=== PATIENT | female | born 1945 | race Caucasian/White ===

== ENCOUNTER 2017-03-11 12:31 | Emergency (ER) | payer OTHER ==
[~2017-03-11] VITALS: Ht 172.7 cm; Wt 120.0 kg
[~2017-03-11 12:31] MED LIST: ADVA250A INH; ALBU1AER INH; DICL-86 PO; FLEX10TA PO; GABA250S PO; METF-324 PO; MONT10TA2 OR; PRIL20TA2 PO; TRAM50 PO; ULTR50TA PO; VASO10TA8 PO; VENTAER INH
[2017-03-11 12:49] VITALS: BP 174/112; PULSE 106; RESP 20; TEMP 98.3; O2SAT 100
[2017-03-11] MEDS ORDERED: NEUR300C PO (12:55)
--- NOTE | 2017-03-11 13:10 | PD ---
HPI Chief Complaint: Fall Time Seen by Provider: 12:49 Travel History International Travel<30 days: No Contact w/Intl Traveler<30days: No Traveled to known affect area: No History of Present Illness HPI 71yo F PMH of chronic back pain presents to the ED with multiple complaints after a fall today. Pt was walking on 2 canes and slipped on wet kitchen floor that was very narrow and fell on her bilateral knees first and then her wrists and then hit her neck against the pantry and the left shoulder against the other side of the wall. Denies any LOC. Denies any chest pain, sob, n/v. Pt with lower abdominal pain and bilateral hip pain s/p fall as well. No focal weakness or numbness. Not on any anticoagulation. 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 CHARLTON) Past Surgical History Abdominal Surgery: Yes (GALLBLADER) AICD: No Cholecystectomy: Yes Gynecologic Surgery: Yes () Oral Surgery: Yes ([id number]) Pacemaker: No Social History Alcohol Use: No Tobacco Use: No Substance Use: No Allergies-Medications (Allergen,Severity, Reaction): Coded Allergies: Sulfa (Sulfonamide Antibiotics) (Unverified Allergy, Severe, 02/07/17) codeine (Unverified Allergy, Severe, 02/07/17) iodine (Unverified Allergy, Severe, 02/07/17) levofloxacin (Unverified Allergy, Severe, RASH, 02/07/17) penicillin G (Unverified Allergy, Severe, 02/07/17) potassium iodide (Unverified Allergy, Severe, 02/07/17) povidone-iodine (Unverified Allergy, Severe, 02/07/17) sodium iodide (Unverified Allergy, Severe, 02/07/17) sodium iodide (Unverified Allergy, Severe, 02/07/17) Reported Meds & Prescriptions Reported Meds & Active Scripts Active Flexeril (Cyclobenzaprine HCl) 10 Mg Tab 10 Mg PO BID 7 Days Ultram (Tramadol HCl) 50 Mg Tab 50 Mg PO Q6-8HPRN Reported Neurontin (Gabapentin) 300 Mg Cap 300 Mg PO TID Singulair (Montelukast Sodium) 10 Mg Tab 10 Mg OR DAILY Proair Hfa (Albuterol Sulfate) 8.5 Gm Aero 2 Puff INH Q6 * SHAKE WELL BEFORE USE * Metformin ER 24 HR (Metformin HCl) 1,000 Mg Tab 1,000 Mg PO BID Advair Diskus 250/50 (Salmeterol Xinafoate/Fluticasone) 250 Mcg/50 Mcg Inhp 1 Puff INH BID Ventolin Hfa (Albuterol Sulfate) 18 Gm Aero 2 Puff INH Q4HPRN * SHAKE WELL BEFORE USE * Voltaren (Diclofenac Sodium) 75 Mg Tabec 75 Mg PO BID Neurontin (Gabapentin) 250 Mg/5 Ml Natali 300 Mg PO TID Ultram (Tramadol HCl) 50 Mg Tab 50 Mg PO BIDAC FOR PAIN Vasotec (Enalapril Maleate) 10 Mg Tab 10 Mg PO DAILY Prilosec Otc (Omeprazole Magnesium) 20 Mg Tab 1 Tab PO DAILY Review of Systems Except as stated in HPI: all other systems reviewed are Neg Physical Exam Narrative GENERAL: 71yo F in mild distress. SKIN: Focused skin assessment warm/dry. HEAD: Atraumatic. Normocephalic. EYES: Pupils equal and round at 3mm bilaterally. EOMI. No scleral icterus. No injection or drainage. ENT: No nasal bleeding or discharge. Mucous membranes pink and moist. NECK: In cervical spine collar. CARDIOVASCULAR: Regular rate and rhythm. No murmur appreciated. RESPIRATORY: No accessory muscle use. Clear to auscultation. Breath sounds equal bilaterally. GASTROINTESTINAL: Abdomen soft, _TTP LLQ, RLQ. No rebound tenderness or guarding. BACK: No step off. No midline ttp. MUSCULOSKELETAL: Bilateral knees: Ecchymoses. +TTP. Distal pulses intact. Sensation intact. Bilateral wrist: +TTP, mild edema in right distal radius. +TTP left proximal thumb. Distal pulses intact. Sensation intact. FROM in all digits. Left shoulder: Small abrasions. Good ROM in left shoulder. +TTP proximal humerus. Sensation intact. Distal pulses intact. NEUROLOGICAL: Awake and alert. No obvious cranial nerve deficits. Motor grossly within normal limits. Normal speech. PSYCHIATRIC: Appropriate mood and affect; insight and judgment normal. Data Data Last Documented VS Vital Signs Date Time Temp Pulse Resp B/P (MAP) Pulse Ox O2 Delivery O2 Flow Rate FiO2 03/11/17 12:53 106 16 100 Room Air 03/11/17 12:49 98.3 174/112 (132) Orders Orders Complete Blood Count With Diff (03/11/17 12:59) Comprehensive Metabolic Panel (03/11/17 12:59) Wrist, Limited (Ap&Lat) (03/11/17 ) Wrist, Limited (Ap&Lat) (03/11/17 ) Hand, Limited (2vws) (03/11/17 ) Shoulder, Limited(2vws) (03/11/17 ) Ct Brain W/O Iv Contrast(Rout) (03/11/17 ) Ct Cerv Spine W/O Contrast (03/11/17 ) Prothrombin Time / Inr (Pt) (03/11/17 12:59) Act Partial Throm Time (Ptt) (03/11/17 12:59) Ct Abd/Pel W/O Iv Contrast (03/11/17 ) Knee, Ltd (1 Or 2vws) (03/11/17 ) Knee, Ltd (1 Or 2vws) (03/11/17 ) Diazepam (Valium) (03/11/17 15:30) Ketorolac Inj (Toradol Inj) (03/11/17 15:30) Splint Or Brace Apply/Monitor (03/11/17 15:35) Fiberglass Splint Forearm Adul (03/11/17 ) Sling Cradle Arm (03/11/17 ) Labs Laboratory Tests Test 03/11/17 13:10 White Blood Count 9.8 TH/MM3 Red Blood Count 4.67 MIL/MM3 Hemoglobin 14.3 GM/DL Hematocrit 41.5 % Mean Corpuscular Volume 89.0 FL Mean Corpuscular Hemoglobin 30.6 PG Mean Corpuscular Hemoglobin Concent 34.4 % Red Cell Distribution Width 13.9 % Platelet Count 185 TH/MM3 Mean Platelet Volume 9.7 FL Neutrophils (%) (Auto) 75.7 % Lymphocytes (%) (Auto) 12.9 % Monocytes (%) (Auto) 9.7 % Eosinophils (%) (Auto) 1.1 % Basophils (%) (Auto) 0.6 % Neutrophils # (Auto) 7.4 TH/MM3 Lymphocytes # (Auto) 1.3 TH/MM3 Monocytes # (Auto) 1.0 TH/MM3 Eosinophils # (Auto) 0.1 TH/MM3 Basophils # (Auto) 0.1 TH/MM3 CBC Comment DIFF FINAL Differential Comment Prothrombin Time 10.7 SEC Prothromb Time International Ratio 1.0 RATIO Activated Partial Thromboplast Time 27.1 SEC Blood Urea Nitrogen 9 MG/DL Creatinine 0.58 MG/DL Random Glucose 143 MG/DL Total Protein 6.5 GM/DL Albumin 3.5 GM/DL Calcium Level 10.0 MG/DL Alkaline Phosphatase 140 U/L Aspartate Amino Transf (AST/SGOT) 20 U/L Alanine Aminotransferase (ALT/SGPT) 30 U/L Total Bilirubin 0.9 MG/DL Sodium Level 138 MEQ/L Potassium Level 3.8 MEQ/L Chloride Level 105 MEQ/L Carbon Dioxide Level 24.1 MEQ/L Anion Gap 9 MEQ/L Estimat Glomerular Filtration Rate 103 ML/MIN [facility] Medical Decision Making Medical Screen Exam Complete: Yes Emergency Medical Condition: Yes Differential Diagnosis Fracture vs. contusion vs. musculoskeletal pain Narrative Course 71yo F with multiple complaints s/p mechanical fall today. Labs reviewed, no leukocytosis. Alk phos mildly elevated at 140. CTa/p showed no evidence for significant acute traumatic injury in abdomen or pelvis. Xray left hand showed no acute fracture. CT brain negative. CT cspine showed no acute fracture or dislocation. Xray of bilateral knee showed no acute fracture. Xray left shoulder showed no acute fracture. Xray right wrist showed small osseous fragment just inferior to the triquetrum. Probable triquetral avulsion fracture. Pt placed in a volar splint and instructed to follow up with hand surgery Dr. Anderson as an outpatient. Xray left wrist negative. Pt given valium and toradol for pain. Pt reevaluated at bedside and feels better. Pt's family members are here and able to take her home. informatics manager called and she gave them resources for assisted living facilities. Diagnosis Primary Impression: Triquetral fracture Qualified Codes: S62.114A - Nondisplaced fracture of triquetrum [cuneiform] bone, right wrist, initial encounter for closed fracture Referrals: Francis Evans MD 2 days Probable triquetral avulsion fracture. Patient Instructions: General Instructions Departure Forms: Tests/Procedures Additional Instructions: Please follow up with hand surgeon Dr. Anderson [phone] in 2-3 days. You can take the hydrocodone that you have as needed for pain. Return to the ED if symptoms worsen. Med/Other Pt SpecificInfo: No Change to Meds Disposition: 01 DISCHARGE HOME Condition: Stable Maria E De Los Santos DO Mar 11, 2017 13:10
[2017-03-11 13:58] LABS: AUTOMATED NEUTROPHIL # 7.4 TH/MM3 (1.8-7.7); BASOPHIL # 0.1 TH/MM3 (0-0.2); BASOPHIL % 0.6 % (0.0-2.0); EOSINOPHIL # 0.1 TH/MM3 (0-0.4); EOSINOPHIL % 1.1 % (0.0-4.0); HEMATOCRIT 41.5 % (35.0-46.0); HEMO FLAGS DIFF FINAL; LYMPH % 12.9 % (9.0-44.0); LYMPHOCYTE # 1.3 TH/MM3 (1.0-4.8); MEAN CORPUSCULAR HEMOGLOBIN 30.6 PG (27.0-34.0); MEAN CORPUSCULAR HGB CONC 34.4 % (32.0-36.0); MONO % 9.7 % (0.0-8.0); NEUT % 75.7 % (16.0-70.0); PLATELET COUNT 185 TH/MM3 (150-450); RED BLOOD COUNT 4.67 MIL/MM3 (4.00-5.30); RED CELL DISTRIBUTION WIDTH 13.9 % (11.6-17.2); WHITE BLOOD COUNT 9.8 TH/MM3 (4.0-11.0)
[2017-03-11 14:09] LABS: APTT (PATIENT) 27.1 SEC (24.3-30.1); PROTHROMBIN TIME - PATIENT 10.7 SEC (9.8-11.6)
[2017-03-11 14:13] LABS: ANION GAP 9 MEQ/L (5-15); BICARBONATE 24.1 MEQ/L (21.0-32.0); BLOOD UREA NITROGEN 9 MG/DL (7-18); CHLORIDE 105 MEQ/L (98-107); GLOMERULAR FILTRATION RATE 103 ML/MIN (>89); POTASSIUM 3.8 MEQ/L (3.5-5.1); SODIUM (NA) 138 MEQ/L (136-145)
[2017-03-11 14:15] LABS: ALT (GPT) 30 U/L (10-53); AST (GOT) 20 U/L (15-37)
[2017-03-11 14:17] LABS: ALKALINE PHOSPHATASE 140 U/L (45-117); TOTAL BILIRUBIN ADULT 0.9 MG/DL (0.2-1.0)
--- NOTE | 2017-03-11 14:51 | RADRPT ---
EXAM DATE/TIME: 03/11/2017 14:29 [facility] COMPARISON: No previous studies available for comparison. INDICATIONS : Trauma; fall. RADIATION DOSE: 56.35 CTDIvol (mGy) ; Patient motion MEDICAL HISTORY : Cardiovascular disease. SURGICAL HISTORY : None. ENCOUNTER: Initial ACUITY: 1 day PAIN SCALE: 5/10 LOCATION: cranial TECHNIQUE: Multiple contiguous axial images were obtained of the head. Using automated exposure control and adj ustment of the mA and/or kV according to patient size, radiation dose was kept as low as reasonably a chievable to obtain optimal diagnostic quality images. DICOM format image data is available electro nically for review and comparison. FINDINGS: CEREBRUM: The ventricles are normal for age. No evidence of midline shift, mass lesion, hemorrhage or acute in farction. No extra-axial fluid collections are seen. POSTERIOR FOSSA: The cerebellum and brainstem are intact. The 4th ventricle is midline. The cerebellopontine angle i s unremarkable. EXTRACRANIAL: The visualized portion of the orbits is intact. SKULL: The calvaria is intact. No evidence of skull fracture. CONCLUSION: 1. No acute intracranial abnormality. Luis M Santos MD on March 11, 2017 at 14:49 Board Certified Radiologist. This report was verified electronically.
--- NOTE | 2017-03-11 15:01 | RADRPT ---
EXAM DATE/TIME: 03/11/2017 14:35 [facility] COMPARISON: No previous studies available for comparison. INDICATIONS : Trauma; fall. ORAL CONTRAST: No oral contrast ingested. RADIATION DOSE: 41.39 CTDIvol (mGy) ; Patient body habitus MEDICAL HISTORY : Cardiovascular disease. SURGICAL HISTORY : Cholecystectomy. ENCOUNTER: Initial ACUITY: 1 day PAIN SCALE: 5/10 LOCATION: Bilateral abdomen. TECHNIQUE: Volumetric scanning of the abdomen and pelvis was performed. Using automated exposure control and ad justment of the mA and/or kV according to patient size, radiation dose was kept as low as reasonably achievable to obtain optimal diagnostic quality images. DICOM format image data is available electro nically for review and comparison. FINDINGS: LOWER LUNGS: The visualized lower lungs are clear. LIVER: Homogeneous density without lesion. There is no dilation of the biliary tree. Gallbladder is surgica lly absent. SPLEEN: Normal size without lesion. PANCREAS: Within normal limits. KIDNEYS: Normal in size and shape. There is no mass, stone, or hydronephrosis. ADRENAL GLANDS: Within normal limits. VASCULAR: There is no aortic aneurysm. BOWEL/MESENTERY: Mild to moderate sigmoid diverticulosis without significant inflammatory changes. Bowel otherwise tiffany ears grossly unremarkable without evidence for obstruction. No free air or pneumatosis. No significan t free fluid. No drainable fluid collection. ABDOMINAL WALL: Within normal limits. RETROPERITONEUM: Subcentimeter retroperitoneal lymph nodes do not meet CT size criteria. BLADDER: Bladder is mildly distended but otherwise unremarkable by CT. REPRODUCTIVE: Within normal limits. INGUINAL: There is no lymphadenopathy or hernia. MUSCULOSKELETAL: Degenerative spondylosis of the lower lumbar spine with postsurgical features of transpedicular screw and posterior lisa fixation at L3-4 with laminectomy at L4-5. Hardware appears intact. Degenerative c hanges about the hips bilaterally. No significant acute bony fracture in the visualized osseous struc tures. CONCLUSION: 1. No evidence for significant acute traumatic injury in the abdomen or pelvis. No free fluid. 2. Ancillary findings include sigmoid diverticulosis, degenerative spondylosis of the lumbar spine wi th postsurgical features, status post cholecystectomy. Luis M Santos MD on March 11, 2017 at 14:55 Board Certified Radiologist. This report was verified electronically.
--- NOTE | 2017-03-11 15:02 | RADRPT ---
EXAM DATE/TIME: 03/11/2017 14:17 [facility] COMPARISON: No previous studies available for comparison. INDICATIONS : Pain post fall. MEDICAL HISTORY : None. SURGICAL HISTORY : None. ENCOUNTER: Initial ACUITY: 1 day PAIN SCORE: 5/10 LOCATION: Left Shoulder. FINDINGS: Two view examination of the left shoulder demonstrates no evidence of fracture or dislocation. The g lenohumeral and acromioclavicular joints are maintained. Degenerative changes about the a.c. joint. B keisha mineralization is normal. CONCLUSION: 1. No acute fracture or dislocation. Luis M Santos MD on March 11, 2017 at 15:00 Board Certified Radiologist. This report was verified electronically.
--- NOTE | 2017-03-11 15:06 | RADRPT ---
EXAM DATE/TIME: 03/11/2017 14:09 [facility] COMPARISON: No previous studies available for comparison. INDICATIONS : Pain post fall. MEDICAL HISTORY : None. SURGICAL HISTORY : None. ENCOUNTER: Initial ACUITY: 1 day PAIN SCORE: 10/10 LOCATION: Right Knee FINDINGS: Osseous structures are intact without evidence for acute bony fracture. Prominent degenerative osteoa rthritis of the medial compartment. Mild degenerative loss arthritis of the lateral and patellofemora l compartments. No significant joint effusion. Soft tissues are grossly unremarkable. CONCLUSION: 1. No acute fracture or dislocation. 2. Prominent degenerative loss arthritis of the medial compartment. Luis M Santos MD on March 11, 2017 at 15:04 Board Certified Radiologist. This report was verified electronically.
--- NOTE | 2017-03-11 15:08 | RADRPT ---
EXAM DATE/TIME: 03/11/2017 14:09 [facility] COMPARISON: No previous studies available for comparison. INDICATIONS : Pain post fall. MEDICAL HISTORY : None. SURGICAL HISTORY : None. ENCOUNTER: Initial ACUITY: 1 day PAIN SCORE: 7/10 LOCATION: Left Knee. FINDINGS: Osseous structures are intact without evidence for acute bony fracture or focal bony destruction. Pro minent osteoarthritis of the medial and patellofemoral compartments. Mild osteoarthritis of the later al compartment. No significant joint effusion. Soft tissues are grossly unremarkable. CONCLUSION: 1. No acute fracture or dislocation. 2. Prominent degenerative osteoarthritis of the medial and patellofemoral compartments. Luis M Santos MD on March 11, 2017 at 15:05 Board Certified Radiologist. This report was verified electronically.
--- NOTE | 2017-03-11 15:09 | RADRPT ---
EXAM DATE/TIME: 03/11/2017 14:04 [facility] COMPARISON: No previous studies available for comparison. INDICATIONS : Pain post fall. MEDICAL HISTORY : None. SURGICAL HISTORY : None. ENCOUNTER: Initial ACUITY: 1 day PAIN SCORE: 6/10 LOCATION: Left Wrist. FINDINGS: Osseous structures are intact without evidence for acute bony fracture. Degenerative osteoarthritis i nvolving the first carpometacarpal joint. Carpal bones appear intact. Soft tissues are unremarkable. CONCLUSION: 1. No acute fracture or dislocation. Luis M Santos MD on March 11, 2017 at 15:06 Board Certified Radiologist. This report was verified electronically.
--- NOTE | 2017-03-11 15:12 | RADRPT ---
EXAM DATE/TIME: 03/11/2017 14:04 [facility] COMPARISON: No previous studies available for comparison. INDICATIONS : Pain post fall. MEDICAL HISTORY : None. SURGICAL HISTORY : None. ENCOUNTER: Initial ACUITY: 1 day PAIN SCORE: 5/10 LOCATION: Right Wrist. FINDINGS: Small osseous fragment just inferior to the triquetrum. Remaining osseous structures are intact. Dege nerative changes of the carpal metacarpal joints most prominently in the first carpal metacarpal join t. Mild soft tissue prominence overlying the ulnar aspect of the wrist. CONCLUSION: 1. Probable triquetral avulsion fracture, as above. Luis M Santos MD on March 11, 2017 at 15:07 Board Certified Radiologist. This report was verified electronically.
--- NOTE | 2017-03-11 15:15 | RADRPT ---
EXAM DATE/TIME: 03/11/2017 14:03 [facility] COMPARISON: No previous studies available for comparison. INDICATIONS : Pain post fall. MEDICAL HISTORY : None. SURGICAL HISTORY : None. ENCOUNTER: Initial ACUITY: 1 day PAIN SCORE: 6/10 LOCATION: Left Hand. FINDINGS: Osseous structures appear intact without evidence for acute bony fracture. Degenerative changes of th e first carpal metacarpal joint. Carpal bones appear grossly intact. No significant soft tissue abnor mality. CONCLUSION: 1. No acute fracture or dislocation. Luis M Santos MD on March 11, 2017 at 15:12 Board Certified Radiologist. This report was verified electronically.
[2017-03-11] MEDS ORDERED: DIAZEPAM 5 MG TAB PO ONE (15:30)
[2017-03-11] MEDS ORDERED: KETOROLAC TROMETHAMINE 30 MG/ML (IVP) VIAL IV PUSH ONE (15:30)
--- NOTE | 2017-03-11 15:40 | RADRPT ---
EXAM DATE/TIME: 03/11/2017 14:29 [facility] COMPARISON: No previous studies available for comparison. INDICATIONS : Trauma; fall. RADIATION DOSE: 48.73 CTDIvol (mGy) ; Patient body habitus MEDICAL HISTORY : Cardiovascular disease. SURGICAL HISTORY : None. ENCOUNTER: Initial ACUITY: 1 day PAIN SCALE: 5/10 LOCATION: Bilateral neck TECHNIQUE: Volumetric scanning of the cervical spine was performed. Multiplanar reconstructions in the sagittal, coronal and oblique axial planes were performed. Using automated exposure control and adjustment o f the mA and/or kV according to patient size, radiation dose was kept as low as reasonably achievable to obtain optimal diagnostic quality images. DICOM format image data is available electronically f or review and comparison. FINDINGS: FINDINGS: Vertebral body heights are maintained. Osseous structures are intact without evidence for acute bony fracture. Dens is intact. Sagittal alignment is maintained. There is a normal C1-2 relationship. Face ts are normally aligned. There is no significant prevertebral soft tissue hematoma. Advanced multilev el degenerative spondylosis of the lower lumbar spine most notably from C4-7 with disc space narrowin g and osteophyte formation. Multilevel facet arthropathy. No significant cervical adenopathy or gross mass. Visualized lung apices are clear without pneumothorax. CONCLUSION: 1. No acute fracture or dislocation. 2. Advanced degenerative spondylosis of the lower lumbar spine. Luis M Santos MD on March 11, 2017 at 15:36 Board Certified Radiologist. This report was verified electronically.
== END 2017-03-11 17:59 | disposition home or self-care (01) ==
LOC: NEPE 12:31
DX: S62.114A Nondisplaced fracture of triquetrum [cuneiform] bone, right wrist, initial encounter for closed fracture (principal); M25.551 Pain in right hip; M25.552 Pain in left hip; R10.30 Lower abdominal pain, unspecified; M25.532 Pain in left wrist; M25.561 Pain in right knee; M25.562 Pain in left knee; J45.909 Unspecified asthma, uncomplicated; E11.9 Type 2 diabetes mellitus without complications; W01.0XXA Fall on same level from slipping, tripping and stumbling without subsequent striking against object, initial encounter; Y92.000 Kitchen of unspecified non-institutional (private) residence as the place of occurrence of the external cause; Y99.8 Other external cause status
CPT/HCPCS: 70450; 72125; 73030; 73100; 73120; 73560; 74176; 80053; 85025; 85610; 85730; 96374; 99285; J1885

== ENCOUNTER 2018-04-11 13:39 | Inpatient (IN) ==
--- NOTE | 2018-04-11 14:04 | ED ---
HPI General Chief Complaint: Chest Pain Stated Complaint: Chest Pain Time Seen by Provider: 04/11/18 13:56 Source: patient and EMS Mode of arrival: EMS Limitations: no limitations History of Present Illness HPI narrative: Patient is a 72-year-old female presenting to the emerge department for evaluation of chest pain. Patient states started 4 days ago getting progressively worse since that time. She reports that 2 nights ago it woke her out of her sleep. Pain is associated with shortness of breath which is increased from her baseline. Patient has asthma and has been out of her inhaler. She states that the chest pain is midsternal, radiates to her neck, left arm, and through to her back. Patient reports that she felt nauseated yesterday, she has a mild headache mild dizziness as well. Patient reports a history of type 2 diabetes, asthma, osteoarthritis. She had a stress test and heart cath over 10 years ago. Symptom onset was gradual, symptoms are moderate nature. Patient presents with EMS from an urgent care center where she presented to have the CP assessed. MD complaint: Reports chest pain STEMI Alert: No Onset (ago): day(s) (4) Duration: progressively worsening Onset: during rest and during exertion Pain location: Reports substernal and left chest Severity: moderate Severity scale (1-10): 6 Quality: Reports tightness, heaviness and sharp Pain radiation: Reports LUE, back and neck Relieving factors: nothing Associated symptoms: Reports nausea, dyspnea and cough Treatments prior to arrival chest pain: Reports aspirin (324mg given by EMS) and nitroglycerin (1 SL given by EMS, pain improved slightly after this was administered.) Related Data On Oral Contraceptives: No Home Medications Medication Instructions Recorded Confirmed amlodipine 2.5 mg PO DAILY 04/11/18 04/11/18 gabapentin 600 mg PO QID 04/11/18 04/11/18 glipizide 10 mg PO BID 04/11/18 04/11/18 hydrocodone-acetaminophen 1 tab PO Q6H PRN 04/11/18 04/11/18 losartan 100 mg PO DAILY 04/11/18 04/11/18 montelukast [Singulair] 10 mg PO QPM 04/11/18 04/11/18 Allergies Allergy/AdvReac Type Severity Reaction Status Date / Time codeine Allergy Severe unknown Verified 04/11/18 16:12 iodine Allergy Severe unknown Verified 04/11/18 16:12 levofloxacin Allergy Severe RASH Verified 04/11/18 16:12 penicillin G Allergy Severe unknown Verified 04/11/18 16:12 potassium iodide Allergy Severe unknown Verified 04/11/18 16:12 povidone-iodine Allergy Severe unknown Verified 04/11/18 16:12 sodium iodide Allergy Severe unknown Verified 04/11/18 16:12 sodium iodide Allergy Severe unknown Verified 04/11/18 16:12 Sulfa (Sulfonamide Allergy Severe unknown Verified 04/11/18 16:12 Antibiotics) Review of Systems ROS: all other systems reviewed are negative PMFSH History History 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 Medical History Medical History Diabetes (Acute) Esophageal dilatation (Acute) HTN (hypertension) (Acute) Osteoarthritis (Acute) Rheumatoid arteritis (Acute) Urinary incontinence (Acute) Surgical History Surgical History H/O dilation and curettage (Acute) H/O knee surgery (Acute) History of appendectomy (Acute) History of delivery (Acute) History of cholecystectomy (Acute) Previous back surgery (Acute) Social History Social History Substance History: No History of Abuse Second Hand Smoke Exposure: Yes Smoking Status: Never smoker How Often Do You Have a Drink Containing Alcohol: Never Recent Travel in [facility] within the Last 8 Weeks: No Recent Out of Country Travel within the Last 8 Weeks: No Exam Narrative Exam Narrative: GENERAL: Overweight, well-developed, alert elderly female. Presenting in no acute distress. SKIN: Focused skin assessment warm/dry. HEAD: Atraumatic. Normocephalic. EYES: Pupils equal and round. No scleral icterus. No injection or drainage. ENT: No nasal bleeding or discharge. Mucous membranes pink and moist. NECK: Trachea midline. No JVD. CARDIOVASCULAR: Tachycardic. No murmur appreciated. RESPIRATORY: No accessory muscle use. Clear to auscultation. Breath sounds equal bilaterally. GASTROINTESTINAL: Abdomen soft, non-tender, nondistended. Hepatic and splenic margins not palpable. MUSCULOSKELETAL: No obvious deformities. No clubbing. No cyanosis. No edema. NEUROLOGICAL: Awake and alert. No obvious cranial nerve deficits. Motor grossly within normal limits. Normal speech. PSYCHIATRIC: Appropriate mood and affect; insight and judgment normal. Course Initial Documented Vital Signs Pulse Rate 128 H 04/11/18 13:44 Respiratory Rate 17 04/11/18 13:44 Blood Pressure 184/85 H 04/11/18 13:44 Pulse Oximetry 97 04/11/18 13:44 Last Documented Vital Signs Pulse Rate 82 04/11/18 15:36 Respiratory Rate 16 04/11/18 15:36 Blood Pressure 131/95 H 04/11/18 15:36 Pulse Oximetry 98 04/11/18 15:36 Clinical Decision Support HEART Score Questions History: Highly suspicious EKG: Non-specific repolarization disturbance Age: 65 years+ Risk Factors: 1-2 Risk Factors Initial Troponin: Normal Limit Heart Score HEART Score: 6 Medical Decision Making MDM Narrative Medical decision making narrative: Patient is a 72-year-old female presenting with 4 days of progressively worsening chest pain. Patient is tachycardic on arrival, she is mildly hypertensive. Labs and imaging ordered and pending. Patient will be given nitroglycerin paste to her anterior chest wall. She already received aspirin in route. Labs reviewed, no acute findings identified. Chest x-ray shows no acute disease. Patient has been resting comfortably, her blood pressure trended down with the administration of Nitropaste to her anterior chest wall, she is currently pain-free. CT pulmonary angiogram was performed to rule out pulmonary embolism due to patient' s tachycardia on arrival, this was also negative. It did show a 3 mm pulmonary nodule. Patient will be admitted to the chest pain center, it is been over 10 years since her last cardiac workup, she has multiple risk factors and her heart score is 6. Medical Screen Exam Complete: Yes Emergency Medical Condition: Yes Differential Diagnosis Differential Diagnosis: ACS versus [place] versus pulmonary embolism versus bronchitis versus pneumonia versus other Medical Records Medical records reviewed: Yes I reviewed the patient's medical records. Lab Data Lab results reviewed: Yes I reviewed the patient's lab results. Result diagrams: 04/11/18 14:10 04/11/18 14:10 Lab Results 04/11/18 04/11/18 04/11/18 Range/Units 14:10 14:10 14:10 WBC 10.5 (4.0-11.0) th/mm3 RBC 4.87 (4.00-5.30) mil/mm3 Hgb 15.0 (11.6-15.3) gm/dL Hct 44.0 (35.0-46.0) % MCV 90.3 (80.0-100.0) fL MCH 30.8 (27.0-34.0) pg MCHC 34.1 (32.0-36.0) % RDW 14.9 (11.6-17.2) % Plt Count 227 (150-450) th/mm3 MPV 9.3 (7.0-11.0) fL Neut % (Auto) 77.5 H (16.0-70.0) % Lymph % (Auto) 13.5 (9.0-44.0) % [place] % (Auto) 8.2 H (0.0-8.0) % Eos % (Auto) 0.4 (0.0-4.0) % Baso % (Auto) 0.4 (0.0-2.0) % Neut # (Auto) 8.1 H (1.8-7.7) th/mm3 Lymph # (Auto) 1.4 (1.0-4.8) th/mm3 [place] # (Auto) 0.9 (0.0-0.9) th/mm3 Eos # (Auto) 0.0 (0.0-0.4) th/mm3 Baso # (Auto) 0.0 (0.0-0.2) th/mm3 WBC Differential . Differential Comment Auto diff final PT 10.6 (9.8-11.6) sec INR 1.0 Ratio APTT 20.1 L (24.3-30.1) sec Sodium 135 L (136-145) meq/L Potassium 3.5 (3.5-5.1) meq/L Chloride 100 (98-107) meq/L Carbon Dioxide 27.9 (21.0-32.0) meq/L Anion Gap 7 (5-15) meq/L BUN 8 (7-18) mg/dL Creatinine 1.07 H (0.50-1.00) mg/dL Estimated GFR 51 L (>89) mL/min Random Glucose 221 H (74-106) mg/dL Calcium 9.9 (8.5-10.1) mg/dL Magnesium 2.1 (1.5-2.5) mg/dL Total Bilirubin 0.4 (0.2-1.0) mg/dL AST 18 (15-37) U/L ALT 26 (10-53) U/L Alkaline Phosphatase 150 H (45-117) U/L Total Creatine Kinase 45 (26-192) U/L Troponin I Less than 0.02 L (0.02-0.05) ng/mL B-Natriuretic Peptide (0-100) pg/mL Total Protein 7.4 (6.4-8.2) g/dL Albumin 3.6 (3.4-5.0) g/dL Lipase 66 L (73-393) U/L 04/11/ Range/Units 14:10 WBC (4.0-11.0) th/mm3 RBC (4.00-5.30) mil/mm3 Hgb (11.6-15.3) gm/dL Hct (35.0-46.0) % MCV (80.0-100.0) fL MCH (27.0-34.0) pg MCHC (32.0-36.0) % RDW (11.6-17.2) % Plt Count (150-450) th/mm3 MPV (7.0-11.0) fL Neut % (Auto) (16.0-70.0) % Lymph % (Auto) (9.0-44.0) % [place] % (Auto) (0.0-8.0) % Eos % (Auto) (0.0-4.0) % Baso % (Auto) (0.0-2.0) % Neut # (Auto) (1.8-7.7) th/mm3 Lymph # (Auto) (1.0-4.8) th/mm3 [place] # (Auto) (0.0-0.9) th/mm3 Eos # (Auto) (0.0-0.4) th/mm3 Baso # (Auto) (0.0-0.2) th/mm3 WBC Differential Differential Comment PT (9.8-11.6) sec INR Ratio APTT (24.3-30.1) sec Sodium (136-145) meq/L Potassium (3.5-5.1) meq/L Chloride (98-107) meq/L Carbon Dioxide (21.0-32.0) meq/L Anion Gap (5-15) meq/L BUN (7-18) mg/dL Creatinine (0.50-1.00) mg/dL Estimated GFR (>89) mL/min Random Glucose (74-106) mg/dL Calcium (8.5-10.1) mg/dL Magnesium (1.5-2.5) mg/dL Total Bilirubin (0.2-1.0) mg/dL AST (15-37) U/L ALT (10-53) U/L Alkaline Phosphatase (45-117) U/L Total Creatine Kinase (26-192) U/L Troponin I (0.02-0.05) ng/mL B-Natriuretic Peptide 29 (0-100) pg/mL Total Protein (6.4-8.2) g/dL Albumin (3.4-5.0) g/dL Lipase (73-393) U/L Imaging Data Radiologist's impression: Chest X-Ray 04/11/18 13:56 CONCLUSION: No acute disease Chest CTA 04/11/18 13:57 CONCLUSION: 1. No evidence for pulmonary embolism. Discharge Plan Discharge Disposition Patient Disposition: 30 Still Patient Discharge Condition Condition: Stable Discharge Details Diagnosis: Atypical chest pain, Lung nodule < 6cm on CT Physicians Team ED Provider: Jorge Marino ED Midlevel Provider: Mai العراقي Primary Care Provider: UNKNOWN, Attending Provider: Al Mora Status ED Status: Admitted Observation Patient
[2018-04-11] MEDS ORDERED: MethylPREDNISolone Sod Succinate Inj 125 MG/2 ML Vial IV.PUSH ONE (14:10)
--- NOTE | 2018-04-11 14:30 | XR ---
EXAM DATE: 04/11/2018 1:56 PM EDT AGE/SEX: 72 years / Female INDICATIONS: Mid to left sided chest pain. CLINICAL DATA: This is the patient's initial encounter. Patient reports that signs and symptoms have been present for 1 day and indicates a pain score of 5/10. MEDICAL/SURGICAL HISTORY: Asthma. Diabetes. None. COMPARISON: [facility], XR CHEST PA AND LAT, 01/29/2018. . FINDINGS: A single AP view of the chest demonstrates the lungs to be symmetrically aerated without evidence of mass, infiltrate or effusion. The cardiomediastinal contours are unremarkable. Osseous structures a re intact. CONCLUSION: No acute disease Electronically signed by: Dannie Sales MD 04/11/2018 2:29 PM EDT
[2018-04-11 14:43] LABS: Baso % (Auto) 0.4 % (0.0-2.0); Eos % (Auto) 0.4 % (0.0-4.0); Lymph # (Auto) 1.4 th/mm3 (1.0-4.8); Lymph % (Auto) 13.5 % (9.0-44.0); Mean Corpuscular HGB Conc 34.1 % (32.0-36.0); Mean Corpuscular Hemoglobin 30.8 pg (27.0-34.0); Mean Corpuscular Volume 90.3 fL (80.0-100.0); Mean Platelet Volume 9.3 fL (7.0-11.0); Mono # (Auto) 0.9 th/mm3 (0.0-0.9); Mono % (Auto) 8.2 % (0.0-8.0); Neut # (Auto) 8.1 th/mm3 (1.8-7.7); Neut % (Auto) 77.5 % (16.0-70.0); Platelet Count 227 th/mm3 (150-450); Red Blood Count 4.87 mil/mm3 (4.00-5.30); Red Cell Distribution Width 14.9 % (11.6-17.2); White Blood Count 10.5 th/mm3 (4.0-11.0)
[2018-04-11 14:57] LABS: Activated Partial Thrombo Time 20.1 sec (24.3-30.1); Prothrombin Time 10.6 sec (9.8-11.6)
[2018-04-11 15:11] LABS: Alanine Aminotransferase 26 U/L (10-53); Albumin 3.6 g/dL (3.4-5.0); Anion Gap 7 meq/L (5-15); Aspartate Aminotransferase 18 U/L (15-37); Blood Urea Nitrogen 8 mg/dL (7-18); Calcium 9.9 mg/dL (8.5-10.1); Carbon Dioxide 27.9 meq/L (21.0-32.0); Chloride 100 meq/L (98-107); Glomerular Filtration Rate 51 mL/min (>89); Glucose,Random 221 mg/dL (74-106); Lipase 66 U/L (73-393); Magnesium 2.1 mg/dL (1.5-2.5); Potassium 3.5 meq/L (3.5-5.1); Sodium 135 meq/L (136-145)
[2018-04-11 15:12] LABS: Alkaline Phosphatase 150 U/L (45-117); Total Protein 7.4 g/dL (6.4-8.2)
[2018-04-11 15:24] LABS: Creatine Kinase 45 U/L (26-192)
--- NOTE | 2018-04-11 16:09 | CT ---
EXAM DATE: 04/11/2018 3:31 PM EDT AGE/SEX: 72 years / Female INDICATIONS: Chest pain. CLINICAL DATA: This is the patient's initial encounter. Patient reports that signs and symptoms have been present for 4 - 6 days and indicates a pain score of 5/10. MEDICAL/SURGICAL HISTORY: Hypertension. Diabetes. Appendectomy. Cholecystectomy. back surgery RADIATION DOSE: 10.82 CTDI (mGy) COMPARISON: [facility], CHEST 1V SINGLE AP, 04/11/2018. . TECHNIQUE: Volumetric scanning was performed using a multi-row detector CT scanner during bolus infu margarito of 74 ml Omnipaque 350 (iohexol) nonionic water-soluble contrast as a single exam dose. The cecile a was post processed with a variety of visualization algorithms including full volume maximum intensi ty projection and sliding thin slab reformation. Using automated exposure control and adjustment of the mA and/or kV according to patient size, radiation dose was kept as low as reasonably achievable t o obtain optimal diagnostic quality images. DICOM format image data is available electronically for review and comparison. FINDINGS: No evidence for pulmonary embolism. No pleural or pericardial effusions. Atherosclerotic calcificatio ns of the aorta and coronary arteries are noted. Lungs are clear. There is a tiny noncalcified right upper lobe pulmonary nodule measuring 3 mm on image 63. There are degenerative changes of the spine. CONCLUSION: 1. No evidence for pulmonary embolism. Electronically signed by: Zia Winslow MD 04/11/2018 4:07 PM EDT
[2018-04-11] MEDS ORDERED: Iohexol 350 MG/ML 50 ML Vial (for Cath Lab) IVCONTRAST ONE (16:24)
[2018-04-11] MEDS ORDERED: Acetaminophen 500 MG Tablet PO PRN (16:35)
[2018-04-11 16:54] LABS: Bilirubin,Urine Negative (Negative); Clarity,Urine Hazy (Clear); Color,Urine Yellow (Yellw/Straw); Glucose,Urine (UA) Negative (Negative); Hyaline Casts,Urine 23 /lpf (0-3); Leukocyte Esterase,Urine Negative (Negative); Mucus,Urine Few /lpf (Occasional); Nitrite,Urine Negative (Negative); Specific Gravity,Urine 1.011 (1.002-1.035); Squamous Epithelial Cell,Urine 1 /hpf (0-5)
--- NOTE | 2018-04-11 17:17 | P.HPCA ---
History of Present Illness Primary Care Physician: UNKNOWN Chief Complaint: Chest pain History of Present Illness: 72-year-old female with history of type 2 diabetes, hypertension, chronic pain, and asthma presents emergency room for further evaluation of intermittent, nonexertional chest pain. Onset Monday night. Awakened her from sleep. Location left anterior chest described as a quick sharp pain followed by a "kick." Duration seconds. Followed by intermittent lingering of pressure. No radiation. No associated symptoms of nausea, vomiting, dyspnea, or diaphoresis. Since this time discomfort has occurred intermittently, unable to provide a frequency. No precipitating or relieving factors. Also reports 4 weeks of "quivering heart." Years ago follow with Dr. Baca for reported "fluttering in her chest." Recently scheduled appointment with Dr. Baca on 04/17 for reported "quivering heart." No history of A. fib or atrial fibrillation. No known coronary artery disease. Endorses past cardiac heart catheterization 10 years ago reported to be normal. Endorses increased situational stress due to being in the [place] [facility] since October. Requesting regular scheduled pain medications for chronic bilateral hips and knee pain. Endorses she quit taking blood pressure medications and singular. Rarely required use of albuterol rescue inhaler. No recent illness, injury, or fever. No history of DVT or PE. Past cardiac testing Cardiac catheterization approximately 10 years ago reported to be normal. Social history Known hypertension and type 2 diabetes. Quit taking antihypertensive medications couple months ago. Not prescribed a statin. Lifelong non-smoker. No alcohol or recreational drug use. . Endorses sedentary lifestyle. Requires use of walker and wheelchair. Currently living alone is in a [place] [facility]. Family history Noncontributory for early onset cardiovascular disease. 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 - Medical History Medical History: Medical History (Last Updated 04/11/18 @ 17:15 by DELFIN Liu) Chronic pain Diabetes Esophageal dilatation HTN (hypertension) Osteoarthritis Rheumatoid arteritis Urinary incontinence - Surgical History Surgical History: Surgical History (Last Reviewed 04/12/18 @ 08:38 by Gibran Wing) H/O dilation and curettage H/O knee surgery History of appendectomy History of delivery History of cholecystectomy Previous back surgery - Social History I have reviewed the patient's Social History: Yes - Tobacco History Second Hand Smoke Exposure: Yes Tobacco Use In Past 30 Days: No Smoking Status: Never smoker - Alcohol History How Often Do You Have a Drink Containing Alcohol: Never - Substance Use History Substance History: No History of Abuse - Travel History Recent Travel in the [place] Within the Last 8 Weeks: No Recent Travel Out of the Country Within the Last 8 Weeks: No - Immunization History Tetanus Immunization: Unsure Medications and Allergies Active Medications: Active Medications Acetaminophen (Tylenol) 500 mg PO Q4H PRN PRN Reason: HEADACHE Aspirin (Aspirin) 325 mg PO DAILY RENATO Nitroglycerin (Nitrostat Sl) 0.4 mg SL Q5M PRN PRN Reason: CHEST PAIN Ondansetron HCl (Zofran Inj) 4 mg IV.PUSH Q6H PRN PRN Reason: NAUSEA Sodium Chloride (Ns Flush) 2 ml IV.FLUSH UNSCH PRN PRN Reason: FLUSH AFTER USING IV ACCESS Sodium Chloride (Ns Flush) 2 ml IV.FLUSH BID RENATO Allergies Allergy/AdvReac Type Severity Reaction Status Date / Time codeine Allergy Severe unknown Verified 04/11/18 16:12 iodine Allergy Severe unknown Verified 04/11/18 16:12 levofloxacin Allergy Severe RASH Verified 04/11/18 16:12 penicillin G Allergy Severe unknown Verified 04/11/18 16:12 potassium iodide Allergy Severe unknown Verified 04/11/18 16:12 povidone-iodine Allergy Severe unknown Verified 04/11/18 16:12 sodium iodide Allergy Severe unknown Verified 04/11/18 16:12 sodium iodide Allergy Severe unknown Verified 04/11/18 16:12 Sulfa (Sulfonamide Allergy Severe unknown Verified 04/11/18 16:12 Antibiotics) Home Medications Medication Instructions Recorded Confirmed Type amlodipine 2.5 mg PO DAILY 04/11/18 04/11/18 History gabapentin 600 mg PO QID 04/11/18 04/11/18 History glipizide 10 mg PO BID 04/11/18 04/11/18 History hydrocodone-acetaminophen 1 tab PO Q6H PRN 04/11/18 04/11/18 History losartan 100 mg PO DAILY 04/11/18 04/11/18 History montelukast [Singulair] 10 mg PO QPM 04/11/18 04/11/18 History Exam Vital signs: Vital Signs 04/11/18 13:44 04/11/18 13:56 04/11/18 15:36 Pulse Rate 128 H 82 Respiratory Rate 17 16 Blood Pressure 184/85 H 131/95 H Pulse Oximetry 97 99 98 Intake & Output 04/10/18 04/11/18 04/11/18 18:59 06:59 18:59 Weight 117.934 kg Narrative: GENERAL: Alert WN, WD, NAD, very pleasant, obese, elderly female HEAD: NC, AT EYES: Sclera clear, conjunctiva without injection, pupils equal and round ENT: Mucous membranes pink and moist NECK: Supple, no masses, trachea midline CV: RRR, without murmur, rub, gallop, no JVD, S1-S2 no S3-S4. No carotid bruits RESP: Clear lungs throughout bilateral, no crackles, wheeze, rhonchi, symmetrical chest rise, nonlabored, able to speak in full sentences ABD: Soft, NT, ND, no masses, positive bowel tones EXT: Pulses +2x4, no dependent edema, discolored lower extremities, scaly, thick discolored toenails. Monofilament testing completed. Decreased sensation toes. MS: Normal tone x4 extremities, nontender, no obvious deformities, full range of motion NEURO: CN II through CN XII grossly intact, motor strength 5/5 PSYCH: A+O x3, pleasant affect, appropriate speech, mood, insight and judgment SKIN: Normal turgor, normal texture, no lesions, brisk cap refill, decreased lower extremity hair distribution Results 04/11/18 14:10 04/11/18 14:10 Cardiac Enzymes 04/11/18 04/11/18 Range/Units 14:10 14:10 AST 18 (15-37) U/L Troponin I Less than 0.02 L (0.02-0.05) ng/mL B-Natriuretic Peptide 29 (0-100) pg/mL Coagulation 04/11/18 04/11/18 Range/Units 14:10 14:10 PT 10.6 (9.8-11.6) sec APTT 20.1 L (24.3-30.1) sec B-Natriuretic Peptide 29 (0-100) pg/mL CBC 04/11/18 Range/Units 14:10 WBC 10.5 (4.0-11.0) th/mm3 RBC 4.87 (4.00-5.30) mil/mm3 Hgb 15.0 (11.6-15.3) gm/dL Hct 44.0 (35.0-46.0) % Plt Count 227 (150-450) th/mm3 Neut # (Auto) 8.1 H (1.8-7.7) th/mm3 Lymph # (Auto) 1.4 (1.0-4.8) th/mm3 [place] # (Auto) 0.9 (0.0-0.9) th/mm3 Eos # (Auto) 0.0 (0.0-0.4) th/mm3 Baso # (Auto) 0.0 (0.0-0.2) th/mm3 Comprehensive Metabolic Panel 04/11/18 Range/Units 14:10 Sodium 135 L (136-145) meq/L Potassium 3.5 (3.5-5.1) meq/L Chloride 100 (98-107) meq/L Carbon Dioxide 27.9 (21.0-32.0) meq/L BUN 8 (7-18) mg/dL Creatinine 1.07 H (0.50-1.00) mg/dL Calcium 9.9 (8.5-10.1) mg/dL AST 18 (15-37) U/L ALT 26 (10-53) U/L Alkaline Phosphatase 150 H (45-117) U/L Total Protein 7.4 (6.4-8.2) g/dL Albumin 3.6 (3.4-5.0) g/dL Intake and Output 04/11/18 04/11/18 04/11/18 06:59 14:59 22:59 Other: Weight 117.934 kg Patient Weight 04/12/18 06:59 Weight 117.934 kg - Imaging and Cardiology Imaging: Impressions Chest X-Ray 04/11/18 13:56 CONCLUSION: No acute disease Chest CTA 04/11/18 13:57 CONCLUSION: 1. No evidence for pulmonary embolism. EKG interpretations - Dysrhythmias Sinus rhythms and dysrhythmias: sinus tachycardia (nonspecific st t segment changes) Caprini VTE Risk Assessment Caprini VTE Risk Assessment: Moderate/High Risk (score >= 2) Caprini Risk Assessment Model: Point Value = 1 Point Value = 2 Point Value = 3 Point Value = 5 Age 41-60 Minor surgery BMI > 25 kg/m2 Swollen legs Varicose veins or History of unexplained or recurrent spontaneous Oral contraceptives or hormone replacement Sepsis (< 1 month) Serious lung disease, including pneumonia (< 1 month) Abnormal pulmonary function Acute myocardial infarction Congestive heart failure (< 1 month) History of inflammatory bowel disease Medical patient at bed rest Age 61-74 Arthroscopic surgery Major open surgery (> 45 min) Laparoscopic surgery (> 45 min) Malignancy Confined to bed (> 72 hours) Immobilizing plaster cast Central venous access Age >= 75 History of VTE Family history of VTE Factor V Leiden Prothrombin [id number] Lupus anticoagulant Anticardiolipin antibodies Elevated serum homocysteine Heparin-induced thrombocytopenia Other congenital or acquired thrombophilia Stroke (< 1 month) Elective arthroplasty Hip, pelvis, or leg fracture Acute spinal cord injury (< 1 month) Prophylaxis Regimen: Total Risk Factor Score Risk Level Prophylaxis Regimen 0-1 Low Early ambulation 2 Moderate Order ONE of the following: *Sequential Compression Device (SCD) *Heparin 5000 units SQ BID 3-4 Higher Order ONE of the following medications: *Heparin 5000 units SQ TID *Enoxaparin/Lovenox 40 mg SQ daily (WT < 150 kg, CrCl > 30 mL/min) *Enoxaparin/Lovenox 30 mg SQ daily (WT < 150 kg, CrCl > 10-29 mL/min) *Enoxaparin/Lovenox 30 mg SQ BID (WT < 150 kg, CrCl > 30 mL/min) AND/OR *Sequential Compression Device (SCD) 5 or more Highest Order ONE of the following medications: *Heparin 5000 units SQ TID (Preferred with Epidurals) *Enoxaparin/Lovenox 40 mg SQ daily (WT < 150 kg, CrCl > 30 mL/min) *Enoxaparin/Lovenox 30 mg SQ daily (WT < 150 kg, CrCl > 10-29 mL/min) *Enoxaparin/Lovenox 30 mg SQ BID (WT < 150 kg, CrCl > 30 mL/min) AND *Sequential Compression Device (SCD) Assessment and Plan - Assessment (1) Atypical chest pain Code(s): R07.89 - Other chest pain Status: Acute Plan: Admitted to chest pain center. Rule out ACS with 3 sets of EKGs, cardiac enzymes , and monitor on telemetry overnight. Will be seen and evaluated by Dr. Hunter Edmondson in a.m. further disposition to follow. (2) Type II diabetes mellitus Code(s): E11.9 - Type 2 diabetes mellitus without complications Status: Chronic Plan: SSI moderate dose coverage. Hold glipizide. Unclear why patient is not taking statin therapy. (3) Hypertension Code(s): I10 - Essential (primary) hypertension Status: Chronic Plan: Continue to monitor. Patient quit taking amlodipine and losartan. Discussed importance of tight blood pressure control and medication compliance. (2) Type II diabetes mellitus Qualifiers: Diabetes mellitus skilled nursing insulin use: without skilled nursing use Diabetes mellitus complication status: with unspecified complications Qualified Code(s) : E11.8 - Type 2 diabetes mellitus with unspecified complications (3) Hypertension Qualifiers: Hypertension type: unspecified Qualified Code(s): I10 - Essential (primary) hypertension
[2018-04-11] MEDS ORDERED: Dextrose 50% in Water 50 ML Vial IV.PUSH PRN (17:20)
[2018-04-11] MEDS: Gabapentin 300 MG Capsule PO SCH ×3 (18:28→22:56)
[2018-04-11 19:30] LABS: Creatine Kinase 42 U/L (26-192)
[2018-04-11 22:07] LABS: Creatine Kinase 30 U/L (26-192)
[2018-04-11] MEDS: Insulin NovoLOG Aspart Correctional Sugar Inj SQ SCH (22:57)
--- NOTE | 2018-04-12 08:21 | P.PNCA ---
Subjective Interval history: No complaints overnight. Medications and Allergies Active Medications: Active Medications Acetaminophen (Tylenol) 500 mg PO Q4H PRN PRN Reason: HEADACHE Hydrocodone Bitart/Acetaminophen ([place] 10/325) 1 tab PO Q6H PRN PRN Reason: Pain 1-10 Last Admin: 04/12/18 00:42 Dose: 1 tab Albuterol (Albuterol Neb (Prn)) 1.25 mg NEB Q4HR NEB PRN PRN Reason: SHORTNESS OF BREATH/WHEEZING Amlodipine Besylate (Norvasc) 5 mg PO DAILY [facility] Aspirin (Aspirin) 325 mg PO DAILY [facility] Dextrose (D50w Vial) 50 ml IV.PUSH UNSCH PRN PRN Reason: PER HYPOGLYCEMIA PROTOCOL Gabapentin (Neurontin) 600 mg PO QID [facility] Last Admin: 04/11/18 22:56 Dose: 600 mg Glucagon (Glucagon Inj) 1 mg OTHER PRN PRN PRN Reason: for Hypoglycemia Protocol Insulin Aspart (Novolog Insulin Correctional Sugar Inj) 0 unit SQ ACHS [facility]; Protocol Last Admin: 04/11/18 22:57 Dose: 12 unit Nitroglycerin (Nitrostat Sl) 0.4 mg SL Q5M PRN PRN Reason: CHEST PAIN Ondansetron HCl (Zofran Inj) 4 mg IV.PUSH Q6H PRN PRN Reason: NAUSEA Sodium Chloride (Ns Flush) 2 ml IV.FLUSH UNSCH PRN PRN Reason: FLUSH AFTER USING IV ACCESS Last Admin: 04/11/18 22:55 Dose: 2 ml Sodium Chloride (Ns Flush) 2 ml IV.FLUSH BID [facility] Last Admin: 04/11/18 22:58 Dose: 2 ml Allergies Allergy/AdvReac Type Severity Reaction Status Date / Time codeine Allergy Severe unknown Verified 04/11/18 16:12 iodine Allergy Severe unknown Verified 04/11/18 16:12 levofloxacin Allergy Severe RASH Verified 04/11/18 16:12 penicillin G Allergy Severe unknown Verified 04/11/18 16:12 potassium iodide Allergy Severe unknown Verified 04/11/18 16:12 povidone-iodine Allergy Severe unknown Verified 04/11/18 16:12 sodium iodide Allergy Severe unknown Verified 04/11/18 16:12 sodium iodide Allergy Severe unknown Verified 04/11/18 16:12 Sulfa (Sulfonamide Allergy Severe unknown Verified 04/11/18 16:12 Antibiotics) Home Medications Medication Instructions Recorded Confirmed Type amlodipine 2.5 mg PO DAILY 04/11/18 04/11/18 History gabapentin 600 mg PO QID 04/11/18 04/11/18 History glipizide 10 mg PO BID 04/11/18 04/11/18 History hydrocodone-acetaminophen 1 tab PO Q6H PRN 04/11/18 04/11/18 History losartan 100 mg PO DAILY 04/11/18 04/11/18 History montelukast [Singulair] 10 mg PO QPM 04/11/18 04/11/18 History Physical Exam Vital signs: Vital Signs 04/11/18 13:44 04/11/18 13:56 04/11/18 15:36 Temperature Pulse Rate 128 H 82 Respiratory Rate 17 16 Blood Pressure 184/85 H 131/95 H Pulse Oximetry 97 99 98 04/11/18 20:00 04/12/18 00:00 04/12/18 04:00 Temperature 98.3 F 98.2 F 98.1 F Pulse Rate 77 83 85 Respiratory Rate 16 16 16 Blood Pressure 172/79 H 158/76 H 148/77 H Pulse Oximetry 93 L 93 L 94 L 04/12/18 08:00 Temperature Pulse Rate 89 Respiratory Rate 18 Blood Pressure 157/71 H Pulse Oximetry 96 Intake & Output 04/11/18 04/12/18 04/12/18 18:59 06:59 18:59 Weight 117.934 kg 117 kg Other: Date of Last Bowel Movement 04/10/18 04/10/18 - Constitutional no acute distress, morbidly obese, cooperative - Routine HEENT Exam Head: Present: normocephalic, atraumatic ENT: Present: mucous membranes moist - Routine Respiratory Exam Present: CTA bilaterally - Routine Cardiovascular Exam Present: RRR. Absent: murmur, gallop, rubs Results 04/11/18 14:10 04/11/18 14:10 Cardiac Enzymes 04/11/18 04/11/18 04/11/18 Range/Units 14:10 14:10 18:05 AST 18 (15-37) U/L Troponin I Less than 0.02 L Less than 0.02 L (0.02-0.05) ng/mL B-Natriuretic Peptide 29 (0-100) pg/mL 04/11/18 Range/Units 21:00 AST (15-37) U/L Troponin I Less than 0.02 L (0.02-0.05) ng/mL B-Natriuretic Peptide (0-100) pg/mL Coagulation 04/11/18 04/11/18 Range/Units 14:10 14:10 PT 10.6 (9.8-11.6) sec APTT 20.1 L (24.3-30.1) sec B-Natriuretic Peptide 29 (0-100) pg/mL CBC 04/11/18 Range/Units 14:10 WBC 10.5 (4.0-11.0) th/mm3 RBC 4.87 (4.00-5.30) mil/mm3 Hgb 15.0 (11.6-15.3) gm/dL Hct 44.0 (35.0-46.0) % Plt Count 227 (150-450) th/mm3 Neut # (Auto) 8.1 H (1.8-7.7) th/mm3 Lymph # (Auto) 1.4 (1.0-4.8) th/mm3 [place] # (Auto) 0.9 (0.0-0.9) th/mm3 Eos # (Auto) 0.0 (0.0-0.4) th/mm3 Baso # (Auto) 0.0 (0.0-0.2) th/mm3 Comprehensive Metabolic Panel 04/11/18 Range/Units 14:10 Sodium 135 L (136-145) meq/L Potassium 3.5 (3.5-5.1) meq/L Chloride 100 (98-107) meq/L Carbon Dioxide 27.9 (21.0-32.0) meq/L BUN 8 (7-18) mg/dL Creatinine 1.07 H (0.50-1.00) mg/dL Calcium 9.9 (8.5-10.1) mg/dL AST 18 (15-37) U/L ALT 26 (10-53) U/L Alkaline Phosphatase 150 H (45-117) U/L Total Protein 7.4 (6.4-8.2) g/dL Albumin 3.6 (3.4-5.0) g/dL Intake and Output 04/11/18 04/12/18 04/12/18 22:59 06:59 14:59 Other: Date of Last Bowel Movement 04/10/18 Weight 117 kg - Imaging and Cardiology Imaging: Impressions Chest X-Ray 04/11/18 13:56 CONCLUSION: No acute disease Chest CTA 04/11/18 13:57 CONCLUSION: 1. No evidence for pulmonary embolism. Assessment and Plan - Assessment (1) Atypical chest pain Code(s): R07.89 - Other chest pain Status: Acute Plan: Admitted chest pain center. Monitor on telemetry overnight. Ruled out with 3 sets of EKGs and cardiac enzymes. Seen and evaluated by Dr. Hunter Edmondson. Plan is to proceed with Lexiscan this morning. If unremarkable, plans are to discharge home with follow-up with her primary care provider. (2) Type II diabetes mellitus Code(s): E11.9 - Type 2 diabetes mellitus without complications Status: Chronic Plan: SSI moderate dose coverage. Hold glipizide. Unclear why patient is not taking statin therapy. (3) Hypertension Code(s): I10 - Essential (primary) hypertension Status: Chronic Plan: Continue to monitor. Patient quit taking amlodipine and losartan. Discussed importance of tight blood pressure control and medication compliance. (2) Type II diabetes mellitus Qualifiers: Diabetes mellitus water attendant insulin use: without detention use Diabetes mellitus complication status: with unspecified complications Qualified Code(s) : E11.8 - Type 2 diabetes mellitus with unspecified complications (3) Hypertension Qualifiers: Hypertension type: unspecified Qualified Code(s): I10 - Essential (primary) hypertension
[2018-04-12] MEDS: Gabapentin 300 MG Capsule PO SCH ×4 (08:25→20:09)
[2018-04-12] MEDS: Insulin NovoLOG Aspart Correctional Sugar Inj SQ SCH ×4 (08:26→21:06)
[2018-04-12] MEDS ORDERED: amLODIPine 5 MG Tablet PO SCH (09:00)
[2018-04-12] MEDS ORDERED: Aspirin 325 MG Tablet PO SCH (09:00)
[2018-04-12] MEDS ORDERED: Regadenoson Inj 0.4 MG/5 ML Syringe IV.PUSH ONE (09:47)
--- NOTE | 2018-04-12 12:10 | NM ---
EXAM DATE: 04/12/2018 8:43 AM EDT AGE/SEX: 72 years / Female INDICATIONS:Angina. . Mid-sternal chest pain radiating to the neck, left arm and back with dyspnea, n ausea, headache and dizziness. CLINICAL DATA: This is the patient's initial encounter. Patient reports that signs and symptoms have been present for 4 - 6 days and indicates a pain score of 4/10. MEDICAL/SURGICAL HISTORY: Hypertension. Diabetes mellitus type II. Rheumatoid arthritis. Appe ndectomy. Cholecystectomy. section. COMPARISON: No prior exams available for comparison. DOSE: 11.5 mCi Tc 99m Myoview at rest 35 mCi [id number] at stress 0.4 mg Lexiscan STRESS SYMPTOMS: None. EJECTION FRACTION: 70 % TECHNIQUE: The patient underwent pharmacologic stress with infusion of prescribed dose. Continuous ECG tracing was monitored during stress. Gated SPECT imaging was performed after stress and conventi onal SPECT imaging was performed at rest. The examination was performed on a SPECT/CT scanner, both attenuation and non-corrected datasets were reviewed. FINDINGS: Distribution: The maximum perfused segment at stress is in the anterolateral wall. Perfusion Study: Focal reversible defect in the mid anteroseptal wall. Gated Study: There are intact wall motion and wall thickening without hypokinetic or dyskinetic segm ents. The ejection fraction is calculated at 70%. RISK CATEGORY: Low (<1% Annual Motality Rate) CONCLUSION: 1. Focal reversible defect in the mid anteroseptal wall suggestive of focal stress-induced ischemia. 2. Intact wall motion with EF of 70%. Electronically signed by: Luis M Santos MD 04/12/2018 12:09 PM EDT
[2018-04-12] MEDS ORDERED: fentaNYL Citrate Inj 100 MCG/2 ML Ampul IV.PUSH SCH (16:15)
--- NOTE | 2018-04-12 16:18 | P.HPIM ---
History of Present Illness Primary Care Physician: UNKNOWN Chief Complaint: Chest pain History of Present Illness: This patient is a 72-year-old female with a diagnosis of diabetes mellitus type 2, hypertension, chronic pain, and asthma. The patient presented to our emergency department with intermittent nonexertional chest pain. The chest pain has been ongoing since Monday night. He says initially she noticed it while sleeping which awakened her at night. The pain has been ongoing most on the left side of her chest. She describes the pain as sharp in nature. She follows up with Dr. Baca. She recently was seen by Dr. Baca for palpitations. Patient states she had a cardiac catheterization which was done possibly 10 years ago and was normal. Due to her symptoms she came into our facility today for evaluation and care. A Lexiscan was done today which was abnormal. I was called to admit the patient and she will undergo a cardiac catheterization tomorrow. Past medical history diabetes mellitus type 2, hypertension, chronic pain, asthma, gastroesophageal reflux disease, rheumatoid arthritis, Family history noncontributory for cardiac disease. 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 - Medical History Medical History: Medical History (Last Reviewed 04/12/18 @ 08:38 by Gibran Wing) Chronic pain Diabetes Esophageal dilatation HTN (hypertension) Osteoarthritis Rheumatoid arteritis Urinary incontinence - Surgical History Surgical History: Surgical History (Last Reviewed 04/12/18 @ 08:38 by Gibran Wing) H/O dilation and curettage H/O knee surgery History of appendectomy History of delivery History of cholecystectomy Previous back surgery - Tobacco History Second Hand Smoke Exposure: Yes Tobacco Use In Past 30 Days: No Smoking Status: Never smoker - Alcohol History How Often Do You Have a Drink Containing Alcohol: Never - Substance Use History Substance History: No History of Abuse - Travel History Recent Travel in the [place] Within the Last 8 Weeks: No Recent Travel Out of the Country Within the Last 8 Weeks: No - Immunization History Tetanus Immunization: Unsure Medications and Allergies Active Medications: Active Medications Acetaminophen (Tylenol) 500 mg PO Q4H PRN PRN Reason: HEADACHE Hydrocodone Bitart/Acetaminophen ([place] 10/325) 1 tab PO Q6H PRN PRN Reason: Pain 1-10 Last Admin: 04/12/18 08:25 Dose: 1 tab Albuterol (Albuterol Neb (Prn)) 1.25 mg NEB Q4HR NEB PRN PRN Reason: SHORTNESS OF BREATH/WHEEZING Amlodipine Besylate (Norvasc) 5 mg PO DAILY [facility]PLAC[facility] Last Admin: 04/12/18 08:25 Dose: 5 mg Aspirin (Aspirin) 325 mg PO DAILY [facility] Last Admin: 04/12/18 08:25 Dose: 325 mg Dextrose (D50w Vial) 50 ml IV.PUSH UNSCH PRN PRN Reason: PER HYPOGLYCEMIA PROTOCOL Gabapentin (Neurontin) 600 mg PO QID REPLAC[facility] Last Admin: 04/12/18 12:47 Dose: 600 mg Glucagon (Glucagon Inj) 1 mg OTHER PRN PRN PRN Reason: for Hypoglycemia Protocol Insulin Aspart (Novolog Insulin Correctional Sugar Inj) 0 unit SQ ACHS REPLACED BY [facility]; Protocol Last Admin: 04/12/18 11:34 Dose: 7 unit Nitroglycerin (Nitrostat Sl) 0.4 mg SL Q5M PRN PRN Reason: CHEST PAIN Ondansetron HCl (Zofran Inj) 4 mg IV.PUSH Q6H PRN PRN Reason: NAUSEA Sodium Chloride (Ns Flush) 2 ml IV.FLUSH UNSCH PRN PRN Reason: FLUSH AFTER USING IV ACCESS Last Admin: 04/11/18 22:55 Dose: 2 ml Sodium Chloride (Ns Flush) 2 ml IV.FLUSH BID REPLACED BY [facility] Last Admin: 04/12/18 08:27 Dose: 2 ml Allergies Allergy/AdvReac Type Severity Reaction Status Date / Time codeine Allergy Severe unknown Verified 04/11/18 16:12 iodine Allergy Severe unknown Verified 04/11/18 16:12 levofloxacin Allergy Severe RASH Verified 04/11/18 16:12 penicillin G Allergy Severe unknown Verified 04/11/18 16:12 potassium iodide Allergy Severe unknown Verified 04/11/18 16:12 povidone-iodine Allergy Severe unknown Verified 04/11/18 16:12 sodium iodide Allergy Severe unknown Verified 04/11/18 16:12 sodium iodide Allergy Severe unknown Verified 04/11/18 16:12 Sulfa (Sulfonamide Allergy Severe unknown Verified 04/11/18 16:12 Antibiotics) Home Medications Medication Instructions Recorded Confirmed Type amlodipine 2.5 mg PO DAILY 04/11/18 04/11/18 History gabapentin 600 mg PO QID 04/11/18 04/11/18 History glipizide 10 mg PO BID 04/11/18 04/11/18 History hydrocodone-acetaminophen 1 tab PO Q6H PRN 04/11/18 04/11/18 History losartan 100 mg PO DAILY 04/11/18 04/11/18 History montelukast [Singulair] 10 mg PO QPM 04/11/18 04/11/18 History Exam Vital signs: Vital Signs 04/11/18 20:00 04/12/18 00:00 04/12/18 04:00 Temperature 98.3 F 98.2 F 98.1 F Pulse Rate 77 83 85 Respiratory Rate 16 16 16 Blood Pressure 172/79 H 158/76 H 148/77 H Pulse Oximetry 93 L 93 L 94 L 04/12/18 08:00 04/12/18 08:25 04/12/18 09:00 Temperature Pulse Rate 96 H 84 Respiratory Rate 18 18 Blood Pressure 157/71 H Pulse Oximetry 96 04/12/18 11:20 04/12/18 11:42 04/12/18 16:00 Temperature 98.4 F 98.2 F Pulse Rate 88 77 Respiratory Rate 18 18 18 Blood Pressure 125/66 152/67 H Pulse Oximetry 96 97 Intake & Output 04/11/18 04/12/18 04/12/18 18:59 06:59 18:59 Weight 117.934 kg 117 kg Other: Date of Last Bowel Movement 04/10/18 04/10/18 04/11/18 Narrative: General patient in no acute distress, no active chest pain. HEENT extraocular movements are intact, clear oropharyngeal mucosa, no JVD Cardiovascular S1-S2 audible, RRR, no murmurs rubs or gallops Respiratory clear to auscultation bilaterally Abdomen soft, nontender, nondistended, normal bowel sounds Extremities no edema 2+ distal pulses in bilateral upper and lower extremities Neuro cranial nerves II through XII intact Results - Labs CBC & Chem 7: 04/11/18 14:10 04/11/18 14:10 Labs: Cardiac Enzymes 04/11/18 04/11/18 Range/Units 18:05 21:00 Total Creatine Kinase 42 30 (26-192) U/L Troponin I Less than 0.02 L Less than 0.02 L (0.02-0.05) ng/mL Urine 04/11/18 Range/Units 15:32 Urine Color Yellow (Yellw/Straw) Urine Clarity Hazy H (Clear) Urine pH 5.0 (5.0-8.5) Ur Specific [place] 1.011 (1.002-1.035) Urine Protein Negative (Neg-Trace) mg/dL Urine Glucose (UA) Negative (Negative) mg/dL - Imaging Impressions Chest CTA 04/11/18 13:57 CONCLUSION: 1. No evidence for pulmonary embolism. Myocardial Perfusion Scan Nuc Med 04/12/18 00:00 CONCLUSION: 1. Focal reversible defect in the mid anteroseptal wall suggestive of focal stress-induced ischemia. 2. Intact wall motion with EF of 70%. Caprini VTE Risk Assessment Caprini VTE Risk Assessment: Moderate/High Risk (score >= 2) (The patient undergo a procedure tomorrow a.m. No pharmacotherapy for DVT prophylaxis.) Caprini Risk Assessment Model: Point Value = 1 Point Value = 2 Point Value = 3 Point Value = 5 Age 41-60 Minor surgery BMI > 25 kg/m2 Swollen legs Varicose veins or History of unexplained or recurrent spontaneous Oral contraceptives or hormone replacement Sepsis (< 1 month) Serious lung disease, including pneumonia (< 1 month) Abnormal pulmonary function Acute myocardial infarction Congestive heart failure (< 1 month) History of inflammatory bowel disease Medical patient at bed rest Age 61-74 Arthroscopic surgery Major open surgery (> 45 min) Laparoscopic surgery (> 45 min) Malignancy Confined to bed (> 72 hours) Immobilizing plaster cast Central venous access Age >= 75 History of VTE Family history of VTE Factor V Leiden Prothrombin [id number] Lupus anticoagulant Anticardiolipin antibodies Elevated serum homocysteine Heparin-induced thrombocytopenia Other congenital or acquired thrombophilia Stroke (< 1 month) Elective arthroplasty Hip, pelvis, or leg fracture Acute spinal cord injury (< 1 month) Prophylaxis Regimen: Total Risk Factor Score Risk Level Prophylaxis Regimen 0-1 Low Early ambulation 2 Moderate Order ONE of the following: *Sequential Compression Device (SCD) *Heparin 5000 units SQ BID 3-4 Higher Order ONE of the following medications: *Heparin 5000 units SQ TID *Enoxaparin/Lovenox 40 mg SQ daily (WT < 150 kg, CrCl > 30 mL/min) *Enoxaparin/Lovenox 30 mg SQ daily (WT < 150 kg, CrCl > 10-29 mL/min) *Enoxaparin/Lovenox 30 mg SQ BID (WT < 150 kg, CrCl > 30 mL/min) AND/OR *Sequential Compression Device (SCD) 5 or more Highest Order ONE of the following medications: *Heparin 5000 units SQ TID (Preferred with Epidurals) *Enoxaparin/Lovenox 40 mg SQ daily (WT < 150 kg, CrCl > 30 mL/min) *Enoxaparin/Lovenox 30 mg SQ daily (WT < 150 kg, CrCl > 10-29 mL/min) *Enoxaparin/Lovenox 30 mg SQ BID (WT < 150 kg, CrCl > 30 mL/min) AND *Sequential Compression Device (SCD) Assessment and Plan - Plan This patient is a 72-year-old female with a diagnosis of diabetes mellitus type 2, hypertension, chronic pain, and asthma. The patient presented to our emergency department with intermittent nonexertional chest pain. The chest pain has been ongoing since Monday night. He says initially she noticed it while sleeping which awakened her at night. The pain has been ongoing most on the left side of her chest. She describes the pain as sharp in nature. She follows up with Dr. Baca. She recently was seen by Dr. Baca for palpitations. Patient states she had a cardiac catheterization which was done possibly 10 years ago and was normal. Due to her symptoms she came into our facility today for evaluation and care. A Lexiscan was done today which was abnormal. I was called to admit the patient and she will undergo a cardiac catheterization tomorrow. 1. Chest pain concern for acute coronary syndrome The patient presented with the findings have mentioned above. She was initially evaluated by the cardiology team. EKG was done which shows normal sinus rhythm no acute ST segment or T wave changes. 2 sets of cardiac enzymes and troponins are negative. Will follow up 1 more set of cardiac enzymes, troponins, and EKG. Lexiscan was done which shows a focal reversible defect in the mid anteroseptal wall, ejection fraction is approximately 70% CT of the chest was done today which is negative for pulmonary embolus. Plan is for cardiac catheterization possibly tomorrow. She is currently n.p.o. awaiting the procedure. Patient is currently on aspirin. She will be started on a beta-angelo. 2. Hypertension Patient started on Coreg. We will continue to monitor her blood pressures and adjust her medications as needed. 3. Diabetes mellitus type 2 Continue insulin sliding scale. Her diabetes medication regimen will be adjusted as needed. No pharmacotherapy for DVT prophylaxis the patient will undergo cardiac catheterization tomorrow. H&P: Quality - VTE Deep Vein Thrombosis/Pulmonary Embolism Present on Admission: No
--- NOTE | 2018-04-12 16:49 | MB ---
cc: Sal Gama MD DATE: 04/12/2018 REASON FOR CONSULTATION: Chest pain, abnormal nuclear stress test. HISTORY OF PRESENT ILLNESS: The patient is a 72-year-old white female, followed in our office by Dr. Ksenia Baca, with a history of benign positional vertigo, diabetes, hypertension, hyperlipidemia, rheumatoid arthritis, asthma, who was in her usual state of health until 3 or 4 days prior to admission when she began to experience intermittent episodes of left-sided chest pain, sometimes "sharp", sometimes "pressure". The chest pains have never lasted more than 5 minutes and are generally not associated with shortness of breath or diaphoresis, although when she did come into the hospital, she felt mildly to moderately nauseated. Nuclear stress test was obtained reportedly showing anteroseptal ischemia. In the last 3 weeks or so, she has had occasional moderate lightheadedness which she believes is not vertigo. She denies syncope, near syncope, change in chronic intermittent pedal edema, paroxysmal nocturnal dyspnea. Occasionally, she experiences fleeting palpitations briefly. PAST MEDICAL HISTORY: 1. Benign positional vertigo. 2. Diabetes. 3. Hyperlipidemia. 4. Hypertension. 5. Allergic rhinitis. 6. Rheumatoid arthritis. 7. Asthma. CARDIAC MEDICATIONS AT HOME: 1. Amlodipine 2.5 mg daily. 2. Losartan 100 mg daily. ALLERGIES: NUMEROUS ALLERGIES OUTLINED IN THE MEDICAL RECORDS. FAMILY HISTORY: There is no significant family history of early myocardial infarction. SOCIAL HISTORY: The patient denies any history of alcohol or tobacco abuse. REVIEW OF SYSTEMS: As in the history of present illness, otherwise negative or noncontributory. She also denies dyspepsia, melena, bright red blood per rectum, fevers, pleurisy. Infrequently, she experiences mild posterior headaches. PHYSICAL EXAMINATION: VITAL SIGNS: Her blood pressure 125/66 with a pulse 88, respirations 18. GENERAL: She is a well-developed, well-nourished white female, in no acute distress. HEENT: Jugular venous pressure is normal. Carotid pulses are 2+ bilaterally and without bruits. CHEST: Reveals clear lungs padilla. CARDIAC: She has a regular rhythm and rate with a grade 1/6 systolic murmur heard along the left sternal border. No gallop is audible. ABDOMEN: She has a soft, obese, nontender abdomen. Bowel sounds are present. There is no definite hepatosplenomegaly. EXTREMITIES: Reveals no clubbing or cyanosis. There is trace ankle edema bilaterally. Peripheral pulses are normal throughout. DIAGNOSTIC DATA: EKG from 04/11/2018 shows sinus rhythm with premature atrial complex, otherwise normal EKG, no change from 2004. Chest x-ray shows no acute disease. LABORATORY DATA: Includes normal CBC, negative cardiac enzymes. BUN 8, creatinine 1.07, potassium 3.5, glucose 221. ASSESSMENT AND PLAN: Atypical chest pains, although with abnormal nuclear stress testing of intermediate risk in this 72-year-old white female with history of diabetes, hypertension, hyperlipidemia, asthma, rheumatoid arthritis. Cardiac enzymes are negative for myocardial infarction. EKGs are basically normal. She does have risk factors for coronary disease. Her nuclear stress test images have been reviewed. She appears to not only have anteroseptal ischemia as reported, but she may also have basal inferolateral ischemia. I suspect she does have underlying multivessel coronary artery disease. In light of the instability of her symptoms and the abnormal nuclear stress testing, I have recommended she undergo cardiac catheterization with possible percutaneous coronary intervention, the risks of which have been explained to her, including, but not limited to , myocardial infarction, stroke, arrhythmia, bleeding, infection, and renal failure. She agrees to proceed. RECOMMENDATIONS: 1. Cardiac catheterization in the morning. 2. Add nitroglycerin paste to the daily aspirin and amlodipine. 3. With her multiple risk factors for coronary disease, she ideally needs to be on statin therapy. MD SHAHID Jorge/bobby , 04:06 PM , 04:16 PM JULIA
--- NOTE | 2018-04-12 16:58 | TR ---
Date Performed: 04/12/2018 Time Performed: 10:14:41 DOCTOR: Hunter Edmondson DRUG LIST: CLINICAL HISTORY: REASON FOR TEST: REASON FOR ENDING: OBSERVATION: CONCLUSION: COMMENTS: Lexiscan stress test was performed under standard four minute protocol. Radionuclide was injected one minute prior to ending the test. No electrocardiographic abormalities were present t o suggest ischemia. Nuclear imaging and interpretation are pending.
[2018-04-12] MEDS: Sod Chloride 0.9% Inj 1,000 ML IV.CONT SCH (17:32)
--- NOTE | 2018-04-12 18:09 | ECG ---
Date Performed: 04/11/2018 Time Performed: 17:28:03 PTAGE: 72 years EKG: Sinus rhythm NORMAL ECG PREVIOUS TRACING : 04/11/2018 13.49 Since the previous tracing, normal sinus rhythm has replace d sinus tachycardia DOCTOR: Gino Ellis Interpretating Date/Time 04/12/2018 18:09:08
--- NOTE | 2018-04-12 18:09 | ECG ---
Date Performed: 04/11/2018 Time Performed: 20:52:40 PTAGE: 72 years EKG: Sinus rhythm WITH OCCASIONAL SUPRAVENTRICULAR PREMATURE COMPLEXES BORDERLINE ECG PREVIOUS TRACING : 04/11/2018 17.28 Since the previous tracing, supraventricular premature comp rbea is new DOCTOR: Gino Ellis Interpretating Date/Time 04/12/2018 18:07:48
--- NOTE | 2018-04-12 18:11 | ECG ---
Date Performed: 04/11/2018 Time Performed: 13:49:04 PTAGE: 72 years EKG: SINUS TACHYCARDIA NONSPECIFIC ST & T-WAVE ABNORMALITY ABNORMAL RHYTHM ECG INTERPRETATION BA SED ON A DEFAULT AGE OF 41 YEARS PREVIOUS TRACING : 08/25/2004 13.34 Since previous tracing, no significant change noted DOCTOR: Hunter Edmondson Interpretating Date/Time 04/12/2018 18:10:06
[2018-04-12] MEDS ORDERED: Metoprolol Tartrate 25 MG Tablet PO SCH (21:00)
[2018-04-13] MEDS: Sod Chloride 0.9% Inj 1,000 ML IV.CONT SCH ×2 (02:19→05:06)
[2018-04-13] MEDS ORDERED: Heparin/NS PF Inj 1,500 ML ONE ×2 (07:12→07:18)
[2018-04-13] MEDS ORDERED: Heparin 10,000 UNITS/10 ML Vial (for IV use) ONE (07:18)
[2018-04-13] MEDS ORDERED: fentaNYL Citrate Inj 100 MCG/2 ML Ampul ONE (07:31)
[2018-04-13] MEDS ORDERED: Metoprolol Inj 5 MG/5 ML Vial ONE (07:54)
--- NOTE | 2018-04-13 08:18 | CATHPROC ---
[facility] HIS Report Study Information Study Number Admission Scheduled Start Study Start [id number] Apr 11 2018 4:23PM 04/13/2018 Apr 13 2018 7:10AM [place] [facility] Cardiac Catheterization Admit Source Facility Department Emergency department [facility] - Computer Methods Analyst Physician and Clinical Staff Initial Sal Lauren Management And Budget Analyst Julian NevesRN Recorder Adriana Roberts,KRISTY TECH2 Scrub Florencia Gottlieb,RT(R) (BS) Procedures Performed Procedure Location (Site) Vessel Name Coronary Angiograms LCA Left Coronary Coronary Angiograms RCA Right Coronary LV Gram-hand inj. LV LV Ventricle Equipment Time Tile Conduit Layer Description Size Mfg Part Number Used/Scraped TRANSDUCER, TRUWAVE [id number] 07:36 HINSON DALE * Used W/STOCKCOCK *[id number] *[id number] 07:36 MALLINCKRODT SYRINGE, ANGIOMAT 150ML 150ML *[id number] Used 2SUB MEDICAL CONCEPT DRAPE, RADIAL FEMORAL FULL 07:36 * [id number] *[id number] Used DEVELOPMENT BODY [id number] 07:36 Greenling BLANKET,WARM AIR CCL * Used *[id number] 07:36 Greenling PACK, CCL CUSTOM * Used *[id number] 07:36 Greenling SUPPORT, ARTERIAL ADULT 07561 *[id number] Used [id number] 07:36 [employer] PACER PEN, SKIN DUAL W/ RULER * Used *[id number] BAND, RADIAL COMPRESSION TR [id number] 08:07 [employer] MEDICAL 24CM Used SHORT 24 *[id number] SHEATH, FR6 RADIAL PRELUDE 07:36 Enovex FR 6 [id number] Used EASE 11CM [id number] 07:36 Enovex WIRE, EXCHANGE 260CM 3MMJ 260CM Used *[id number] 07:36 NAMIC MANIFOLD, 4 PORT * Used *[id number] 07:36 NYCOMED OMNIPAQUE, 350 MG, 150ML 150ML [id number] Used CATHETER, FR5 OPTITORQUE [id number] 07:48 [employer] MEDICAL FR 5 Used RADIAL TIG 4.0 *[id number] History: Current Medications Medication Dosage/Unit Route Frequency Last Date/Time Taken NORVASC History: Allergies Allergy Reaction Sulfa (Sulfonamide Antibiotics) unknown potassium iodide unknown sodium iodide unknown codeine unknown iodine unknown povidone-iodine unknown penicillin G unknown levofloxacin RASH History: Risk Factors Family History of Hypertension Dyslipidemia Previous OK Previous Heart Failure Premature CAD Yes Yes No No No Prior Valve Prior PCI Prior CABG Surgery No No No Cerebrovascular Peripheral Artery Chronic Lung On Dialysis Diabetes Diabetes Therapy Disease Disease Disease No No No Yes Yes Insulin History: Symptoms/Diagnosis Selection Items Chest pain History: Stress Tests Stress or Imaging Studies Performed Yes Standard Exercise Stress Test No Stress Echo No Stress Test SPECT Stress Test SPECT Result Stress Test SPECT Ischemia Risk/Extent Yes Positive Intermediate Stress Test CMR No Cardiac CTA Coronary Calcium Score No No History: Other Current Smoker No Labs Hgb (g/dl) Hct (%) RBC (MIL/MM3) WBC (l/cumm) Platelets (thousands) 11.60-17.00 35.00-51.00 4.00-5.90 4.00-11.00 150.00-450.00 15.0 44 4.8 10.5 227 Glucose (mg/dl) BUN (mg/dl) Creatinine (mg/dl) BUN:Creatinine (1:x) 74.00-106.00 7.00-18.00 0.50-1.30 10.00-20.00 221 8 1.0 8 Na (meq/l) K (meq/l) CO2 (mmol/L) 136.00-145.00 3.50-5.10 21.00-32.00 135 3.5 27.9 PT (sec) PTT (sec) INR (PTT:PT) 9.80-11.60 24.30-30.10 0.90-1.10 10.6 20.1 1 Troponin I (ng/ml) CPK (u/l) CPK-MB (ng/ML) 0.02-0.05 26.00-308.00 0.50-3.60 0.02 30 Not Drawn Medication Medication Total Dose (Bolus/Oral) Medication Total Dosage/Unit 1% XYLOCAINE 5 mL BENADRYL 50 mg FENTANYL 50 mcg LOPRESSOR 5 mg OXYGEN 2 l/min RADIAL COCKTAIL 5 mL (Bolus) VERSED 2 mg Medications (Bolus/Oral) Medication Time Given Dosage/Unit Administered By Reason 1% XYLOCAINE 04/13/2018 7:44:46 AM 5 mL Sal Gama 5 mL 1% XYLOCAINE given in lab by Sal Gama in Right Radial via Subcutaneous. BENADRYL 04/13/2018 7:45:31 AM 50 mg Pura, Julian 50 mg BENADRYL given in lab by Julian Neves RN in Left Antecubital via Peripheral IV. Ordered by Sal Uriarte. VERSED 04/13/2018 7:46:43 AM 2 mg Pura, Julian 2 mg VERSED given in lab by Julian Neves RN in Left Antecubital via Peripheral IV. Ordered by Sal Gama. Ntg 200mcg Verapamil 2.5mg Heparin RADIAL COCKTAIL 04/13/2018 7:46:55 AM 5 mL (Bolus) Sal Gama 2500U 5 mL (Bolus) RADIAL COCKTAIL given in lab by Sal Gama in Right Radial via Radial. Using [Solution Name]. Ordered by Sal Gama. Reason: Ntg 200mcg Verapamil 2.5mg Heparin 2500U. FENTANYL 04/13/2018 7:47:14 AM 50 mcg Pura, Julian 50 mcg FENTANYL given in lab by Julian Neves RN in Left Antecubital via Peripheral IV. Ordered by Sal Boogie. OXYGEN 04/13/2018 7:53:43 AM 2 l/min Pura, Julian 2 l/min OXYGEN given in lab by Julian Neves RN via Nasal. Ordered by Sal Gama. LOPRESSOR 04/13/2018 7:55:54 AM 5 mg Pura, Julian 5 mg LOPRESSOR given in lab by Julian Neves RN in Left Antecubital via Peripheral IV. Ordered by Sal Uriarte. Medication (Drip) Medication Time Given Dosage/Unit Concentration/Unit Diluent (ml) Solution IV Solutions 04/13/2018 7:37:50 AM 0 mL (IV) 1000 NaCl .9 Patient arrived on IV Solutions in Left Antecubital via Peripheral IV. Pump/Drip Flow = 20 ml/hr usin g NaCl .9. Initial Case Assessment Cardiovascular HR Rhythm NIBP Chest Pain 74 sr 175/99 0 Circulatory - Right Pulses Dorsalis Pedis Femoral Radial 3 3 2 Scale (0,1,2,3,4,d) Scale (0,1,2,3,4,d) Neurological State Oriented to time-place- Alert Moves all extremities person Respiration - General Respiration Rate SpO2 (%) (B/min) 20 97 Final Case Assessment Cardiovascular HR Rhythm NIBP Chest Pain 133 a-fib 160/101 0 Circulatory - Right Pulses Dorsalis Pedis Femoral Radial 3 3 2 Scale (0,1,2,3,4,d) Scale (0,1,2,3,4,d) Neurological State Oriented to time-place- Alert Moves all extremities person Respiration - General Respiration Rate SpO2 (%) (B/min) 19 98 Chronological Log Time Study Chronological Log 7:09:49 Patient arrived via Bed. 7:09:50 Patient Name, D.O.B, / Armband Verified By R.N. 7:09:51 Consent signed by the physician and the patient and verified by the Computer Methods Analyst staff. 7:09:52 Pre-op and post- op instructions given; patient acknowledges understanding of instructions. 7:09:52 Verbal Stimulation=2 Physical Stimulation=2 Airway=2 Respiration=2 TOTAL=8. (0=absent, 1=li mited, 2=present) 7:09:54 Presedation assessment performed by Computer Methods Analyst RN. 7:09:57 Allens test performed on the right radial and ulnar artery. Vitals capture started with the following parameters, Patient=Adult, Interval=5 min, Initial Pre irwky=336 mmHg, 7:35:26 Deflation Rate=5 mmHg, Cuff placed on Left Arm 7:36:34 Reference ECG taken 7:36:44 HR=75 bpm, RAMC=981/99 mmhg, SpO2=98.0 %, Resp=15 B/min 7:37:07 Patient has been NPO for More than 6Hrs. 7:37:15 Skin Breakdown-none 7:37:40 Perry Prominences Protected 7:37:40 A # 20 IV was noted in the Antecubital (left). Grade = 0 7:37:46 MD paged 7:37:50 Patient arrived on IV Solutions in Left Antecubital via Peripheral IV. Pump/Drip Flow = 20 m l/hr using NaCl .9. 7:38:17 History and physical on the chart or being dictated. Assessment: Initial Case, HR=74 BPM, Rhythm=sr, FTWX=055/99 mmhg, Chest Pain=0 Right Pulses: Makr Ped=3, Femoral=3, Radial=2 7:38:18 Neurological: State=Alert, Ox3, KING Respiration: Resp=20 B/min, SpO2=97 % 7:38:58 Right groin and right wrist prepped with 2% chlorhexidine, and draped after a 3 min. waiting time. 7:39:18 MD responded 7:40:26 Pressure channel 1 zeroed. 7:41:09 HR=75 bpm, QLXS=573/93 mmhg, SpO2=98.0 %, Resp=19 B/min 7:41:41 MD arrived. Time Out. Correct patient, correct procedure, correct physician, labs, allergies, and equipment verified with phlebotomist lab assistant 7:44:18 team present. Fire risk assesment completed (see hard stop sheet for coding). Time Out Concu rred by MD and individual staff in procedure. 7:44:45 Case Start 7:44:46 5 mL 1% XYLOCAINE given in lab by Sal Gama in Right Radial via Subcutaneous. 7:45:31 50 mg BENADRYL given in lab by Julian Neves RN in Left Antecubital via Peripheral IV. Order ed by Sal Gama. 7:46:08 HR=78 bpm, NXDA=004/96 mmhg, SpO2=99.0 %, Resp=10 B/min, Pain=0, Stuart=10, Miller=2 7:46:43 2 mg VERSED given in lab by Julian Neves, MANUELITO in Left Antecubital via Peripheral IV. Ordered by Sal Gama. 7:46:48 Access site was Right Radial Artery . A SHEATH, FR6 RADIAL PRELUDE EASE 11CM FR 6 was advanced into the Radial (right) using the Diane orozco 7:46:49 technique. 5 mL (Bolus) RADIAL COCKTAIL given in lab by Sal Gama in Right Radial via Radial. Using [Natali ution Name]. Ordered 7:46:55 by Sal Gama. Reason: Ntg 200mcg Verapamil 2.5mg Heparin 2500U. 7:47:14 50 mcg FENTANYL given in lab by Julian Neves, RN in Left Antecubital via Peripheral IV. Orde red by Sal Gama. A CATHETER, FR5 OPTITORQUE RADIAL TIG 4.0 FR 5 was advanced over a wire. OMNIPAQUE, 350 MG, 150M L 150ML 7:47:36 was used for injections. 7:49:17 The LCA was injected and visualized at various angles. OMNIPAQUE, 350 MG, 150ML 150ML used. Recorded Pressure: Ao, HR=82, Condition=Condition 1 7:49:23 (Aorta) Ao 153/82/111 7:50:59 The RCA was injected and visualized at various angles. OMNIPAQUE, 350 MG, 150ML 150ML used. 7:51:07 HR=75 bpm, YYZL=203/69 mmhg, SpO2=90 %, Resp=25 B/min After removing the current catheter a MPA-2 INFINITI CATHETER FR 6 was advanced over a WIRE, EXC HANGE 260CM 7:51:26 3MMJ 260CM. 7:52:48 The LV was manually injected with 10 cc's and visualized. OMNIPAQUE, 350 MG, 150ML 150ML use d. Recorded Pressure: LV, Ao, CB=426, Condition=Condition 1 7:53:00 (Left Ventricle) LV 134/16/19, (Aorta) Ao 136/87/109 7:53:37 Catheter was removed 7:53:43 2 l/min OXYGEN given in lab by Julian Neves RN via Nasal. Ordered by Sal Gama. 7:55:54 5 mg LOPRESSOR given in lab by Julian Neves RN in Left Antecubital via Peripheral IV. Ord ered by Sal Gama. 7:56:02 HR=366 bpm, KVUP=768/115 mmhg, SpO2=94.0 %, Resp=15 B/min 7:56:23 Case End (Physician broke scrub) 8:01:35 QU=719 bpm, ZXAA=547/101 mmhg, SpO2=98.0 %, Resp=19 B/min 8:06:04 SXQN=300/111 mmhg Assessment: Final Case, AJ=471 BPM, Rhythm=a-fib, AFUJ=168/101 mmhg, Chest Pain=0 Right Pulses: Mark Ped=3, Femoral=3, Radial=2 8:06:55 Neurological: State=Alert, Ox3, KING Respiration: Resp=19 B/min, SpO2=98 % Radial Compression Device Used. 11 mLs of air placed in BAND, RADIAL COMPRESSION TR SHORT 24 2 4CM. Affected 8:07:01 hand 98 % O2 saturation. 8:07:34 No case complications noted. 8:07:35 Cine recording checked. 8:07:36 Bedside Report will be given. 8:07:42 Patient moved to bed 8:10:45 Vitals capture stopped. 8:10:49 Patient transported to [facility] End Study - Contrast Media Used In Study Contrast Total Opened (mL) Total Used (mL) Total Wasted (mL) Omnipaque 50 50 0 End Study - Maximum Contrast Load Max Contrast Load (mL) 584.1 End Study - Radiation Exposure Fluoro Time Fluoro Dose (mGy) Cine Dose (uGym2) (minutes) 1.4 565 6425 End Study - Sheaths Sheaths Pulled By Sheath Hold Time (min) Florencia Gottlieb End Study - Patient Disposition Complications Transferred To Interventional Outcome No Telemetry Bed No attempt made
--- NOTE | 2018-04-13 08:25 | P.PNCA ---
Subjective Interval history: Mild dyspnea last night responsive to breathing treatments. No CP, dizziness, palpitations. Medications and Allergies Active Medications: Active Medications Acetaminophen (Tylenol) 500 mg PO Q4H PRN PRN Reason: HEADACHE Hydrocodone Bitart/Acetaminophen ([place] 10/325) 1 tab PO Q6H PRN PRN Reason: Pain 1-10 Last Admin: 04/12/18 21:10 Dose: 1 tab Albuterol (Albuterol Neb (Prn)) 1.25 mg NEB Q4HR NEB PRN PRN Reason: SHORTNESS OF BREATH/WHEEZING Last Admin: 04/13/18 06:25 Dose: 1.25 mg Amlodipine Besylate (Norvasc) 5 mg PO DAILY COUNTS INCLUDE 234 BEDS AT THE [facility] Last Admin: 04/12/18 08:25 Dose: 5 mg Aspirin (Aspirin) 325 mg PO DAILY COUNTS INCLUDE 234 BEDS AT THE [facility] Last Admin: 04/12/18 08:25 Dose: 325 mg Carvedilol (Coreg) 3.125 mg PO BID COUNTS INCLUDE 234 BEDS AT THE [facility] Last Admin: 04/12/18 20:09 Dose: 3.125 mg Dextrose (D50w Vial) 50 ml IV.PUSH UNSCH PRN PRN Reason: PER HYPOGLYCEMIA PROTOCOL Diphenhydramine HCl (Benadryl) 50 mg PO PUMP OPERATOR COUNTS INCLUDE 234 BEDS AT THE [facility] Stop: 04/16/18 16:14 Fentanyl Citrate (Fentanyl Inj) 50 mcg IV.PUSH PUMP OPERATOR COUNTS INCLUDE 234 BEDS AT THE [facility] Stop: 04/16/18 16:14 Gabapentin (Neurontin) 600 mg PO QID COUNTS INCLUDE 234 BEDS AT THE [facility] Last Admin: 04/12/18 20:09 Dose: 600 mg Glucagon (Glucagon Inj) 1 mg OTHER PRN PRN PRN Reason: for Hypoglycemia Protocol Sodium Chloride (Ns Inj) 1,000 mls @ 75 mls/hr IV.CONT .[id number] COUNTS INCLUDE 234 BEDS AT THE [facility] Last Admin: 04/13/18 02:19 Dose: 75 mls/hr Sodium Chloride (Ns Inj) 1,000 mls @ 84 mls/hr IV.CONT .[id number] COUNTS INCLUDE 234 BEDS AT THE [facility] Last Admin: 04/13/18 05:06 Dose: Not Given Insulin Aspart (Novolog Insulin Correctional Sugar Inj) 0 unit SQ ACHS COUNTS INCLUDE 234 BEDS AT THE [facility]; Protocol Last Admin: 04/12/18 21:06 Dose: 4 unit Midazolam HCl (Versed Inj) 1 mg IV.PUSH PUMP OPERATOR COUNTS INCLUDE 234 BEDS AT THE [facility] Stop: 04/16/18 16:14 Nitroglycerin (Nitrostat Sl) 0.4 mg SL Q5M PRN PRN Reason: CHEST PAIN Nitroglycerin (Nitro-Bid 2% Oint) 1 inch TOPICAL Q8HR COUNTS INCLUDE 234 BEDS AT THE [facility] Last Admin: 04/13/18 06:16 Dose: 1 inch Ondansetron HCl (Zofran Inj) 4 mg IV.PUSH Q6H PRN PRN Reason: NAUSEA Sodium Chloride (Ns Flush) 2 ml IV.FLUSH UNSCH PRN PRN Reason: FLUSH AFTER USING IV ACCESS Last Admin: 04/11/18 22:55 Dose: 2 ml Sodium Chloride (Ns Flush) 2 ml IV.FLUSH BID COUNTS INCLUDE 234 BEDS AT THE [facility] Last Admin: 04/12/18 20:10 Dose: Not Given Sodium Chloride (Ns Flush) 2 ml IV.FLUSH BID RENATO Sodium Chloride (Ns Flush) 2 ml IV.FLUSH PRN PRN PRN Reason: FLUSH AFTER USING IV ACCESS Allergies Allergy/AdvReac Type Severity Reaction Status Date / Time codeine Allergy Severe unknown Verified 04/11/18 16:12 iodine Allergy Severe unknown Verified 04/11/18 16:12 levofloxacin Allergy Severe RASH Verified 04/11/18 16:12 penicillin G Allergy Severe unknown Verified 04/11/18 16:12 potassium iodide Allergy Severe unknown Verified 04/11/18 16:12 povidone-iodine Allergy Severe unknown Verified 04/11/18 16:12 sodium iodide Allergy Severe unknown Verified 04/11/18 16:12 sodium iodide Allergy Severe unknown Verified 04/11/18 16:12 Sulfa (Sulfonamide Allergy Severe unknown Verified 04/11/18 16:12 Antibiotics) Home Medications Medication Instructions Recorded Confirmed Type amlodipine 2.5 mg PO DAILY 04/11/18 04/11/18 History gabapentin 600 mg PO QID 04/11/18 04/11/18 History glipizide 10 mg PO BID 04/11/18 04/11/18 History hydrocodone-acetaminophen 1 tab PO Q6H PRN 04/11/18 04/11/18 History losartan 100 mg PO DAILY 04/11/18 04/11/18 History montelukast [Singulair] 10 mg PO QPM 04/11/18 04/11/18 History Physical Exam Vital signs: Vital Signs 04/12/18 08:25 04/12/18 09:00 04/12/18 11:20 Temperature Pulse Rate 84 Respiratory Rate 18 18 Blood Pressure Pulse Oximetry 04/12/18 11:42 04/12/18 16:00 04/12/18 19:41 Temperature 98.4 F 98.2 F 98.6 F Pulse Rate 88 77 78 Respiratory Rate 18 18 16 Blood Pressure 125/66 152/67 H 128/67 Pulse Oximetry 96 97 99 04/12/18 20:00 04/12/18 20:12 04/13/18 00:00 Temperature 98.0 F Pulse Rate 71 77 75 Respiratory Rate 16 16 Blood Pressure 139/65 Pulse Oximetry 97 04/13/18 04:00 04/13/18 06:26 Temperature 98.1 F Pulse Rate 70 70 Respiratory Rate 16 16 Blood Pressure 132/66 Pulse Oximetry 94 L Intake & Output 04/12/18 04/13/18 04/13/18 18:59 06:59 18:59 Intake Total 560 / 560 1000 / 1000 Output Total 650 / 650 900 / 900 Balance -90 / -90 100 / 100 Weight 116.573 kg Intake: IV 1000 / 1000 NS Inj 1,000 ML @ 84 mls/hr IV. 1000 / 1000 CONT .[id number] COUNTS INCLUDE 234 BEDS AT THE [facility] Rx#:[id number] Oral 560 / 560 Output: Urine 650 / 650 900 / 900 Other: Date of Last Bowel Movement 04/11/18 - Constitutional no acute distress - Routine Neck Exam Absent: JVD - Routine Respiratory Exam Present: CTA bilaterally - Routine Cardiovascular Exam Present: RRR, S1, S2. Absent: murmur, gallop - Routine Abdominal Exam Present: soft, normoactive bowel sounds. Absent: tenderness, organomegaly - Routine Extremities Exam Absent: cyanosis, clubbing, edema Results 04/11/18 14:10 04/11/18 14:10 Cardiac Enzymes 04/11/18 04/11/18 04/11/18 Range/Units 14:10 14:10 18:05 AST 18 (15-37) U/L Troponin I Less than 0.02 L Less than 0.02 L (0.02-0.05) ng/mL B-Natriuretic Peptide 29 (0-100) pg/mL 04/11/18 Range/Units 21:00 AST (15-37) U/L Troponin I Less than 0.02 L (0.02-0.05) ng/mL B-Natriuretic Peptide (0-100) pg/mL Coagulation 04/11/18 04/11/18 Range/Units 14:10 14:10 PT 10.6 (9.8-11.6) sec APTT 20.1 L (24.3-30.1) sec B-Natriuretic Peptide 29 (0-100) pg/mL CBC 04/11/18 Range/Units 14:10 WBC 10.5 (4.0-11.0) th/mm3 RBC 4.87 (4.00-5.30) mil/mm3 Hgb 15.0 (11.6-15.3) gm/dL Hct 44.0 (35.0-46.0) % Plt Count 227 (150-450) th/mm3 Neut # (Auto) 8.1 H (1.8-7.7) th/mm3 Lymph # (Auto) 1.4 (1.0-4.8) th/mm3 [place] # (Auto) 0.9 (0.0-0.9) th/mm3 Eos # (Auto) 0.0 (0.0-0.4) th/mm3 Baso # (Auto) 0.0 (0.0-0.2) th/mm3 Comprehensive Metabolic Panel 04/11/18 Range/Units 14:10 Sodium 135 L (136-145) meq/L Potassium 3.5 (3.5-5.1) meq/L Chloride 100 (98-107) meq/L Carbon Dioxide 27.9 (21.0-32.0) meq/L BUN 8 (7-18) mg/dL Creatinine 1.07 H (0.50-1.00) mg/dL Calcium 9.9 (8.5-10.1) mg/dL AST 18 (15-37) U/L ALT 26 (10-53) U/L Alkaline Phosphatase 150 H (45-117) U/L Total Protein 7.4 (6.4-8.2) g/dL Albumin 3.6 (3.4-5.0) g/dL Intake and Output 04/12/18 04/13/18 04/13/18 22:59 06:59 14:59 Intake Total 560 / 560 1000 / 1000 Output Total 650 / 650 900 / 900 Balance -90 / -90 100 / 100 Intake: IV 1000 / 1000 NS Inj 1,000 ML @ 84 mls/hr IV. 1000 / 1000 CONT .[id number] COUNTS INCLUDE 234 BEDS AT THE [facility] Rx#:[id number] Oral 560 / 560 Output: Urine 650 / 650 900 / 900 Other: Weight 116.573 kg - Imaging and Cardiology Imaging: Impressions Chest X-Ray 04/11/18 13:56 CONCLUSION: No acute disease Chest CTA 04/11/18 13:57 CONCLUSION: 1. No evidence for pulmonary embolism. Myocardial Perfusion Scan Nuc Med 04/12/18 00:00 CONCLUSION: 1. Focal reversible defect in the mid anteroseptal wall suggestive of focal stress-induced ischemia. 2. Intact wall motion with EF of 70%. Assessment and Plan - Assessment (1) Paroxysmal atrial fibrillation Code(s): I48.0 - Paroxysmal atrial fibrillation Status: Acute Plan: Patient developed atrial fibrillation with rapid rate after cath. Her thromboembolic risk is elevated. Currently asymptomatic with the atrial fib. RECOMMEND change amlodipine to Cardizem, start Eliquis, change aspirin to 81 mg qd, consider IV Amiodarone if atrial fib persists later this morning (2) Atypical chest pain Code(s): R07.89 - Other chest pain Status: Acute Plan: No further atypical CP. Minimal disease seen on cath. RECOMMEND medical therapy. (3) Hypertension Code(s): I10 - Essential (primary) hypertension Status: Chronic Plan: Mostly normotensive. Continue to monitor. - Plan Code Status: full code Discussed Condition With: patient (3) Hypertension Qualifiers: Hypertension type: essential hypertension Qualified Code(s): I10 - Essential (primary) hypertension
--- NOTE | 2018-04-13 10:47 | MA ---
cc: Sal Gama MD, Beth A MD DATE: 04/13/2018 PROCEDURE: Left heart catheterization, selective coronary angiography, left ventriculography. PROCEDURE NOTES: The patient was brought to the cardiac catheterization laboratory in a fasting state after having signed informed consent. The right radial region was prepped and draped as per policy and anesthetized with 1% lidocaine. Arterial access was obtained via the right radial artery and a 6-Albanian sheath placed. Coronary arteriography was done using a Makanda catheter. Left ventriculography was done using a multipurpose catheter. There were no apparent immediate complications. A radial artery compression band was applied to her right wrist at the end of the case to achieve good hemostasis. HEMODYNAMIC DATA: Left ventricle 134 with an end diastolic pressure of 16 aorta 136/67 with a mean of 109. There was no significant transvalvular aortic gradient on pullback of the pigtail catheter. CORONARY ARTERIOGRAPHY: The left main is normal. The left anterior descending is a medium size vessel, extending to the apex. There are minimal luminal irregularities throughout the LAD. Most of the diagonal territory is supplied by a fairly large ramus intermedius, which has minimal luminal irregularities proximally. The left circumflex is a large vessel giving rise to a large obtuse marginal. No definite disease is seen in the left circumflex system. The right coronary artery is a medium size dominant vessel with minimal luminal irregularities proximally. LEFT VENTRICULOGRAPHY: Contrast injection of the left ventricle reveals no segmental wall motion abnormalities. The ejection fraction is estimated at 70%. CONCLUSIONS: 1. Minimal coronary artery disease. 2. Normal left ventricular function with estimated ejection fraction of 70%. 3. Of note, immediately after the case was completed, the patient developed atrial fibrillation with a rapid ventricular response. Sal Gama MD [facility]ani , 08:04 AM , 08:09 AM JULIA
[2018-04-13] MEDS: dilTIAZem CD 240 MG Capsule PO SCH (10:59)
[2018-04-13] MEDS: Aspirin 325 MG Tablet PO SCH (10:59)
[2018-04-13] MEDS: Insulin NovoLOG Aspart Correctional Sugar Inj SQ SCH ×4 (11:36→20:38)
[2018-04-13] MEDS: Gabapentin 300 MG Capsule PO SCH ×4 (11:37→20:37)
--- NOTE | 2018-04-13 15:06 | P.PNIM ---
Subjective Interval history: Patient is not in any acute distress this morning. She does not have any other complaints Physical Exam Vital signs: Vital Signs 04/12/18 16:00 04/12/18 19:41 04/12/18 20:00 Temperature 98.2 F 98.6 F Pulse Rate 77 78 71 Respiratory Rate 18 16 Blood Pressure 152/67 H 128/67 Pulse Oximetry 97 99 04/12/18 20:12 04/13/18 00:00 04/13/18 04:00 Temperature 98.0 F 98.1 F Pulse Rate 77 75 70 Respiratory Rate 16 16 16 Blood Pressure 139/65 132/66 Pulse Oximetry 97 94 L 04/13/18 06:26 04/13/18 08:15 04/13/18 14:00 Temperature Pulse Rate 70 Respiratory Rate 16 18 Blood Pressure Pulse Oximetry 97 04/13/18 14:30 Temperature Pulse Rate Respiratory Rate 18 Blood Pressure Pulse Oximetry Intake & Output 04/12/18 04/13/18 04/13/18 18:59 06:59 18:59 Intake Total 560 / 560 1000 / 1000 Output Total 650 / 650 900 / 900 1000 / 1000 Balance -90 / -90 100 / 100 -1000 / -1000 Weight 116.573 kg Intake: IV 1000 / 1000 NS Inj 1,000 ML @ 84 mls/hr IV. 1000 / 1000 CONT .[id number] [facility] Rx#:[id number] Oral 560 / 560 Output: Urine 650 / 650 900 / 900 Urine Amount (Catheter) 1000 / 1000 Female External 1000 / 1000 Other: Date of Last Bowel Movement 04/11/18 Narrative: General patient in no acute distress, no active chest pain. HEENT extraocular movements are intact, clear oropharyngeal mucosa, no JVD Cardiovascular S1-S2 audible, RRR, no murmurs rubs or gallops Respiratory clear to auscultation bilaterally Abdomen soft, nontender, nondistended, normal bowel sounds Extremities no edema 2+ distal pulses in bilateral upper and lower extremities Neuro cranial nerves II through XII intact - Urinary Catheter Management Female External Cath placed during this visit: no Results - Labs CBC & Chem 7: 04/11/18 14:10 04/11/18 14:10 Laboratory Results - last 24 hr 04/12/18 04/12/18 04/13/18 16:32 20:13 07:02 POC Glucose 118 H 229 H 159 H 04/13/18 11:48 POC Glucose 273 H Assessment and Plan - Plan This patient is a 72-year-old female with a diagnosis of diabetes mellitus type 2, hypertension, chronic pain, and asthma. The patient presented to our emergency department with intermittent nonexertional chest pain. The chest pain has been ongoing since Monday night. 1. Chest pain concern for acute coronary syndrome 2. Atrial for ablation with rapid ventricular rate The patient underwent cardiac catheterization today which showed mild disease. Recommendations were to continue medical management. After the procedure the patient went into atrial fibrillation with rapid ventricular rate she was started on p.o. Cardizem however her heart rate continued to be in the 150s and she was then given amiodarone push and then started on an amiodarone drip. Cardiology is following the patient. The patient has now converted to normal sinus rhythm and her heart rate is in the 80s. I will continue to follow-up with cardiology for the recommendations. During this episode the patient remained asymptomatic. Cardiac enzymes and troponins from admission day were negative. 2. Hypertension Patient was started on Cardizem today. We will continue the current medication regimen and adjust her medications if needed. 3. Diabetes mellitus type 2 Continue insulin sliding scale. Her diabetes medication regimen will be adjusted as needed. No pharmacotherapy for DVT prophylaxis as the patient underwent cardiac catheterization today.
--- NOTE | 2018-04-13 17:57 | ECG ---
Date Performed: 04/13/2018 Time Performed: 08:46:00 PTAGE: 72 years EKG: Atrial fibrillation with rapid ventricular response. Inferior/lateral T wave changes are no nspecific Compared to previous tracing, the atrial fibrillation and ST-T changes are new. Clinical co rrelation is recommended Abnormal ECG PREVIOUS TRACING : 04/13/2018 08.45 DOCTOR: Hunter Edmondson Interpretating Date/Time 04/13/2018 17:55:33
[2018-04-14] MEDS: Insulin NovoLOG Aspart Correctional Sugar Inj SQ SCH ×4 (09:48→23:28)
[2018-04-14] MEDS: dilTIAZem CD 240 MG Capsule PO SCH (09:49)
[2018-04-14] MEDS: Gabapentin 300 MG Capsule PO SCH ×4 (09:50→20:34)
[2018-04-14] MEDS: Aspirin 325 MG Tablet PO SCH (09:53)
--- NOTE | 2018-04-14 10:26 | P.PNIM ---
Subjective Interval history: Patient denies any chest pain. She uses Afrin nasal spray and is not sure how she will do without it. She says she is very weak having been in the hospital for several days and is not sure she is strong enough at this time to go home. Patient says she is able to move right shoulder having about a month ago. Physical Exam Vital signs: Vital Signs 04/13/18 14:00 04/13/18 14:30 04/13/18 15:00 Temperature 98.4 F Pulse Rate 83 Respiratory Rate 18 18 16 Blood Pressure 135/82 Pulse Oximetry 97 04/13/18 16:00 04/13/18 17:00 04/13/18 18:00 Temperature Pulse Rate 75 80 68 Respiratory Rate Blood Pressure Pulse Oximetry 04/13/18 19:00 04/13/18 20:00 04/13/18 21:00 Temperature 98.1 F Pulse Rate 73 66 70 Respiratory Rate 16 Blood Pressure 117/59 L Pulse Oximetry 96 04/13/18 22:28 04/14/18 00:00 04/14/18 01:00 Temperature 98.6 F Pulse Rate 69 70 68 Respiratory Rate 16 Blood Pressure 122/58 L Pulse Oximetry 95 04/14/18 02:00 04/14/18 03:00 04/14/18 04:00 Temperature Pulse Rate 64 64 70 Respiratory Rate 16 Blood Pressure 115/63 Pulse Oximetry 95 04/14/18 05:00 04/14/18 06:00 04/14/18 07:59 Temperature 98.4 F Pulse Rate 66 66 72 Respiratory Rate 18 Blood Pressure 156/84 H Pulse Oximetry 95 Intake & Output 04/13/18 04/14/18 04/14/18 18:59 06:59 18:59 Intake Total 1480 / 1480 490 / 490 Output Total 1350 / 1350 600 / 600 Balance 130 / 130 -110 / -110 Weight 116.573 kg Intake: IV 1000 / 1000 250 / 250 Cordarone Inj 450 MG In D5W Inj 250 / 250 241 ML @ 1 MG/MIN 33.33 mls/hr IV.CONT TITRATE PRN Rx#: [id number] NS Inj 1,000 ML @ 75 mls/hr IV. 1000 / 1000 CONT .[id number] [facility] Rx#:[id number] Oral 480 / 480 240 / 240 Output: Urine 350 / 350 600 / 600 Urine Amount (Catheter) 1000 / 1000 Female External 1000 / 1000 Other: Date of Last Bowel Movement 04/11/18 04/11/18 Narrative: GENERAL: Patient sitting up in bed. Appears comfortable. SKIN: Warm and dry. HEAD: Normocephalic. EYES: No scleral icterus. No injection or drainage. NECK: Supple, trachea midline. No JVD or lymphadenopathy. CARDIOVASCULAR: Regular rate and rhythm without murmurs, gallops, or rubs. RESPIRATORY: Breath sounds equal bilaterally. No accessory muscle use. GASTROINTESTINAL: Abdomen soft, non-tender, nondistended. MUSCULOSKELETAL: No cyanosis, or edema. BACK: Nontender without obvious deformity. No CVA tenderness. - Urinary Catheter Management Female External Cath placed during this visit: no Results - Labs CBC & Chem 7: 04/11/18 14:10 04/11/18 14:10 Laboratory Results - last 24 hr 04/13/18 04/13/18 04/13/18 11:48 17:27 19:45 POC Glucose 273 H 194 H 216 H 04/14/18 08:14 POC Glucose 175 H Assessment and Plan - Plan This patient is a 72-year-old female with a diagnosis of diabetes mellitus type 2, hypertension, chronic pain, and asthma. The patient presented to our emergency department with intermittent nonexertional chest pain. The chest pain has been ongoing since Monday night. //Chest pain concern for acute coronary syndrome //Atrial for ablation with rapid ventricular rate The patient underwent cardiac catheterization today which showed mild disease. Recommendations were to continue medical management. After the procedure the patient went into atrial fibrillation with rapid ventricular rate she was started on p.o. Cardizem however her heart rate continued to be in the 150s and she was then given amiodarone push and then started on an amiodarone drip. Cardiology is following the patient. The patient has now converted to normal sinus rhythm and her heart rate is in the 80s. I will continue to follow-up with cardiology for the recommendations. During this episode the patient remained asymptomatic. Cardiac enzymes and troponins from admission day were negative. =04/16 We will switch to by mouth amiodarone. Continue diltiazem. Could be that Afrin is exacerbating A. fib. Will add Flonase. //Generalized weakness //Right shoulder pain = We will obtain right shoulder x-ray 04/16Await physical therapy evaluation. //Hypertension Patient was started on Cardizem today. We will continue the current medication regimen and adjust her medications if needed. =04/14. Systolic blood pressure acceptable. Continue to monitor. //Diabetes mellitus type 2 Continue insulin sliding scale. Her diabetes medication regimen will be adjusted as needed. No pharmacotherapy for DVT prophylaxis as the patient underwent cardiac catheterization today. Discussed Condition With: Patient, nurse Discharge Planning: Discharge after physical therapy evaluation.
--- NOTE | 2018-04-14 10:29 | P.DCO ---
- Diagnosis (1) Generalized weakness Status: Acute (2) Type II diabetes mellitus Status: Chronic (3) Paroxysmal atrial fibrillation Status: Acute - Physical Therapy Order: Evaluate and treat - Occupational Therapy Order: Evaluate and treat - Home Health Nursing Order: Medical education Instructions: Home health nurse for medication management. - Tar Worker Order: To provide: Long range planning - Case Management Consult Yes - Certification I have seen patient Alina Maier on 04/14/18. My clinical findings support the need for the requested home health care services because: Deconditioned with increased weakness I certify that my clinical findings support that this patient is homebound because: Need for psychosocial assistance (2) Type II diabetes mellitus Qualifiers: Diabetes mellitus [facility] insulin use: without termination clerk use Diabetes mellitus complication status: with unspecified complications Qualified Code(s) : E11.8 - Type 2 diabetes mellitus with unspecified complications
--- NOTE | 2018-04-14 13:32 | XR ---
EXAM DATE: 04/14/2018 12:00 AM EDT AGE/SEX: 72 years / Female INDICATIONS: Right Shoulder pain CLINICAL DATA: This is the patient's initial encounter. Patient reports that signs and symptoms have been present for 1 day and indicates a pain score of 7/10. MEDICAL/SURGICAL HISTORY: . Hypertension. Diabetes mellitus type II. Rheumatoid arthritis.. . Appendectomy. Cholecystectomy. section. COMPARISON: . FINDINGS: There is significant deformity of the right humeral head likely related to old trauma and resultant s ignificant arthritis. No acute fracture is noted. Degenerative changes are also noted involving the r ight acromioclavicular joint. CONCLUSION: 1. Significant deformity of the right humeral head likely related to old trauma and resultant signif icant arthritis. 2. No acute fracture is noted. 3. Degenerative changes are also noted involving the right acromioclavicular joint. Electronically signed by: David Ivan MD 04/14/2018 1:30 PM EDT
--- NOTE | 2018-04-14 19:37 | ECG ---
Date Performed: 04/14/2018 Time Performed: 09:38:18 PTAGE: 72 years EKG: Sinus rhythm WITH PACS BORDERLINE ECG PREVIOUS TRACING : 04/13/2018 08.46 Compared to previous tracing, AF no longer present DOCTOR: Marlene Riggs Interpretating Date/Time 04/14/2018 19:36:54
[2018-04-14] MEDS: Sod Chloride 0.9% Inj 1,000 ML IV.CONT SCH (20:33)
[2018-04-15] MEDS: Aspirin 325 MG Tablet PO SCH (09:34)
[2018-04-15] MEDS: dilTIAZem CD 240 MG Capsule PO SCH (09:34)
[2018-04-15] MEDS: Gabapentin 300 MG Capsule PO SCH ×4 (09:34→21:19)
[2018-04-15] MEDS: Insulin NovoLOG Aspart Correctional Sugar Inj SQ SCH ×4 (09:35→21:14)
--- NOTE | 2018-04-15 12:15 | P.PNIM ---
Subjective Interval history: Patient says she is feeling all right today. Denies any chest pain or shortness of breath. She reports a history of sleep apnea, however does not use CPAP in years. Physical Exam Vital signs: Vital Signs 04/14/18 13:00 04/14/18 14:00 04/14/18 15:00 Temperature Pulse Rate 74 70 68 Respiratory Rate Blood Pressure Pulse Oximetry 04/14/18 15:11 04/14/18 16:00 04/14/18 17:00 Temperature 98.4 F Pulse Rate 74 73 76 Respiratory Rate 18 16 Blood Pressure 142/69 H Pulse Oximetry 96 04/14/18 18:00 04/14/18 19:00 04/14/18 20:00 Temperature 97.8 F Pulse Rate 79 73 76 Respiratory Rate 18 Blood Pressure 147/77 H Pulse Oximetry 96 04/14/18 21:00 04/14/18 22:00 04/14/18 22:34 Temperature Pulse Rate 74 78 60 Respiratory Rate 15 Blood Pressure Pulse Oximetry 04/14/18 23:00 04/15/18 00:00 04/15/18 01:00 Temperature 97.8 F Pulse Rate 80 84 77 Respiratory Rate 16 Blood Pressure 165/80 H Pulse Oximetry 98 04/15/18 02:00 04/15/18 03:00 04/15/18 04:00 Temperature 98.8 F Pulse Rate 72 74 68 Respiratory Rate 14 Blood Pressure 159/76 H Pulse Oximetry 95 04/15/18 05:00 04/15/18 06:00 04/15/18 07:00 Temperature 97.5 F L Pulse Rate 65 68 76 Respiratory Rate 18 Blood Pressure 156/78 H Pulse Oximetry 95 04/15/18 08:00 04/15/18 09:00 04/15/18 09:13 Temperature Pulse Rate 80 82 82 Respiratory Rate 16 Blood Pressure Pulse Oximetry 04/15/18 10:00 04/15/18 11:00 Temperature 97.9 F Pulse Rate 76 79 Respiratory Rate 18 Blood Pressure 157/85 H Pulse Oximetry 96 Intake & Output 04/14/18 04/15/18 04/15/18 18:59 06:59 18:59 Intake Total 1690 / 1690 480 / 480 Output Total 1800 / 1800 550 / 550 Balance -110 / -110 -70 / -70 Weight 116.5 kg Intake: IV 250 / 250 Cordarone Inj 450 MG In D5W Inj 250 / 250 241 ML @ 1 MG/MIN 33.33 mls/hr IV.CONT TITRATE PRN Rx#: [id number] Oral 1440 / 1440 480 / 480 Output: Urine 1800 / 1800 550 / 550 Other: Date of Last Bowel Movement 04/11/18 04/14/18 04/14/18 Narrative: GENERAL: Patient sitting up in bed. Appears comfortable. SKIN: Warm and dry. HEAD: Normocephalic. EYES: No scleral icterus. No injection or drainage. NECK: Supple, trachea midline. No JVD or lymphadenopathy. CARDIOVASCULAR: Regular rate and rhythm without murmurs, gallops, or rubs. RESPIRATORY: Breath sounds equal bilaterally. No accessory muscle use. GASTROINTESTINAL: Abdomen soft, non-tender, nondistended. MUSCULOSKELETAL: No cyanosis, or edema. BACK: Nontender without obvious deformity. No CVA tenderness. - Urinary Catheter Management Female External Cath placed during this visit: no Results - Labs CBC & Chem 7: 04/11/18 14:10 04/11/18 14:10 Laboratory Results - last 24 hr 04/14/18 04/14/18 04/15/18 16:51 20:33 08:10 POC Glucose 164 H 195 H 157 H 04/15/18 11:31 POC Glucose 189 H - Imaging Impressions Shoulder X-Ray 04/14/18 00:00 CONCLUSION: 1. Significant deformity of the right humeral head likely related to old trauma and resultant significant arthritis. 2. No acute fracture is noted. 3. Degenerative changes are also noted involving the right acromioclavicular joint. Assessment and Plan - Assessment (1) Generalized weakness Code(s): R53.1 - Weakness Status: Acute (2) Type II diabetes mellitus Code(s): E11.9 - Type 2 diabetes mellitus without complications Status: Chronic (3) Paroxysmal atrial fibrillation Code(s): I48.0 - Paroxysmal atrial fibrillation Status: Acute - Plan This patient is a 72-year-old female with a diagnosis of diabetes mellitus type 2, hypertension, chronic pain, and asthma. The patient presented to our emergency department with intermittent nonexertional chest pain. The chest pain has been ongoing since Monday night. //Chest pain concern for acute coronary syndrome //Atrial for ablation with rapid ventricular rate The patient underwent cardiac catheterization today which showed mild disease. Recommendations were to continue medical management. After the procedure the patient went into atrial fibrillation with rapid ventricular rate she was started on p.o. Cardizem however her heart rate continued to be in the 150s and she was then given amiodarone push and then started on an amiodarone drip. Cardiology is following the patient. The patient has now converted to normal sinus rhythm and her heart rate is in the 80s. I will continue to follow-up with cardiology for the recommendations. During this episode the patient remained asymptomatic. Cardiac enzymes and troponins from admission day were negative. =04/16 We will switch to by mouth amiodarone. Continue diltiazem. Could be that Afrin is exacerbating A. fib. Will add Flonase. //Generalized weakness //Right shoulder pain = We will obtain right shoulder x-ray 04/16Await physical therapy evaluation. //Hypertension Patient was started on Cardizem today. We will continue the current medication regimen and adjust her medications if needed. =04/14. Systolic blood pressure acceptable. Continue to monitor. //Diabetes mellitus type 2 Continue insulin sliding scale. Her diabetes medication regimen will be adjusted as needed. //Sleep apnea. Noncompliant with CPAP. Patient interested in treating sleep apnea. Will refer to pulmonology as outpatient. No pharmacotherapy for DVT prophylaxis as the patient underwent cardiac catheterization today. Discharge Planning: Discharge to rehab. (2) Type II diabetes mellitus Qualifiers: Diabetes mellitus continuous churn buttermaker insulin use: without long-term use Diabetes mellitus complication status: with unspecified complications Qualified Code(s) : E11.8 - Type 2 diabetes mellitus with unspecified complications
[2018-04-16 07:03] LABS: Carbon Dioxide 26.8 meq/L (21.0-32.0); Magnesium 2.1 mg/dL (1.5-2.5)
[2018-04-16 07:04] LABS: Phosphorus 2.9 mg/dL (2.5-4.9)
[2018-04-16] MEDS: dilTIAZem CD 240 MG Capsule PO SCH (08:54)
[2018-04-16] MEDS: Gabapentin 300 MG Capsule PO SCH ×4 (08:54→21:34)
[2018-04-16] MEDS: Aspirin 325 MG Tablet PO SCH (08:55)
[2018-04-16] MEDS: Insulin NovoLOG Aspart Correctional Sugar Inj SQ SCH ×4 (08:58→21:50)
--- NOTE | 2018-04-16 11:10 | P.PNIM ---
Subjective Interval history: She says she is feeling all right. Denies any chest pain shortness of breath. Denies nausea vomiting. Physical Exam Vital signs: Vital Signs 04/15/18 12:00 04/15/18 13:00 04/15/18 14:00 Temperature Pulse Rate 83 76 80 Respiratory Rate Blood Pressure Pulse Oximetry 04/15/18 14:49 04/15/18 14:51 04/15/18 15:00 Temperature 98.5 F Pulse Rate 76 74 Respiratory Rate 20 20 Blood Pressure 153/75 H Pulse Oximetry 95 04/15/18 16:00 04/15/18 16:36 04/15/18 17:00 Temperature Pulse Rate 77 71 76 Respiratory Rate 16 Blood Pressure Pulse Oximetry 04/15/18 18:00 04/15/18 19:01 04/15/18 19:40 Temperature Pulse Rate 80 77 75 Respiratory Rate 16 Blood Pressure Pulse Oximetry 04/15/18 20:00 04/15/18 20:05 04/15/18 21:01 Temperature 98.2 F Pulse Rate 77 76 81 Respiratory Rate 16 Blood Pressure 142/83 H Pulse Oximetry 94 L 04/15/18 21:18 04/15/18 22:00 04/15/18 23:03 Temperature Pulse Rate 78 70 Respiratory Rate 9 L Blood Pressure Pulse Oximetry 04/16/18 00:02 04/16/18 00:24 04/16/18 01:07 Temperature 98.2 F Pulse Rate 73 84 84 Respiratory Rate 18 Blood Pressure 136/69 Pulse Oximetry 96 04/16/18 02:01 04/16/18 03:04 04/16/18 03:57 Temperature 98.3 F Pulse Rate 70 68 80 Respiratory Rate 16 Blood Pressure 126/73 Pulse Oximetry 95 04/16/18 04:12 04/16/18 05:01 04/16/18 06:18 Temperature Pulse Rate 68 63 71 Respiratory Rate Blood Pressure Pulse Oximetry 04/16/18 07:30 04/16/18 07:56 04/16/18 08:45 Temperature 98.6 F Pulse Rate 78 86 Respiratory Rate 16 18 Blood Pressure 145/63 H Pulse Oximetry 96 04/16/18 10:16 Temperature Pulse Rate 81 Respiratory Rate 16 Blood Pressure Pulse Oximetry Intake & Output 04/15/18 04/16/18 04/16/18 18:59 06:59 18:59 Intake Total 1200 / 1200 240 / 240 Output Total 1900 / 1900 1700 / 1700 Balance -700 / -700 -1460 / -1460 Weight 116.6 kg Intake: Oral 1200 / 1200 240 / 240 Output: Urine 1900 / 1900 1700 / 1700 Other: Date of Last Bowel Movement 04/14/18 04/14/18 Narrative: GENERAL: Patient sitting up in bed. Appears comfortable. SKIN: Warm and dry. HEAD: Normocephalic. EYES: No scleral icterus. No injection or drainage. NECK: Supple, trachea midline. No JVD. CARDIOVASCULAR: Regular rate and rhythm without murmurs, gallops, or rubs. RESPIRATORY: Breath sounds equal bilaterally. No accessory muscle use. GASTROINTESTINAL: Abdomen soft, non-tender, nondistended. MUSCULOSKELETAL: No cyanosis, or edema. BACK: Nontender without obvious deformity. No CVA tenderness. - Urinary Catheter Management Female External Cath placed during this visit: no Results - Labs CBC & Chem 7: 04/11/18 14:10 04/16/18 06:07 Laboratory Results - last 24 hr 04/15/18 04/15/18 04/15/18 11:31 16:46 21:08 Sodium Potassium Chloride Carbon Dioxide Anion Gap BUN Creatinine Estimated GFR POC Glucose 189 H 169 H 169 H Random Glucose Calcium Phosphorus Magnesium Albumin 04/16/18 04/16/18 06:07 08:04 Sodium 136 Potassium 4.0 Chloride 102 Carbon Dioxide 26.8 Anion Gap 7 BUN 12 Creatinine 0.69 Estimated GFR 84 L POC Glucose 182 H Random Glucose 153 H Calcium 10.0 Phosphorus 2.9 Magnesium 2.1 Albumin 3.0 L Assessment and Plan - Assessment (1) Generalized weakness Code(s): R53.1 - Weakness Status: Acute (2) Type II diabetes mellitus Code(s): E11.9 - Type 2 diabetes mellitus without complications Status: Chronic (3) Paroxysmal atrial fibrillation Code(s): I48.0 - Paroxysmal atrial fibrillation Status: Acute - Plan This patient is a 72-year-old female with a diagnosis of diabetes mellitus type 2, hypertension, chronic pain, and asthma. The patient presented to our emergency department with intermittent nonexertional chest pain. The chest pain has been ongoing since Monday night. //Chest pain concern for acute coronary syndrome //Atrial for ablation with rapid ventricular rate The patient underwent cardiac catheterization today which showed mild disease. Recommendations were to continue medical management. After the procedure the patient went into atrial fibrillation with rapid ventricular rate she was started on p.o. Cardizem however her heart rate continued to be in the 150s and she was then given amiodarone push and then started on an amiodarone drip. Cardiology is following the patient. The patient has now converted to normal sinus rhythm and her heart rate is in the 80s. I will continue to follow-up with cardiology for the recommendations. During this episode the patient remained asymptomatic. Cardiac enzymes and troponins from admission day were negative. =04/15 We will switch to by mouth amiodarone. Continue diltiazem. Could be that Afrin is exacerbating A. fib. Will add Flonase. = 04/16. Some slight irritation from Flonase. Will switch to Nasacort at discharge. //Generalized weakness //Right shoulder pain = We will obtain right shoulder x-ray 04/16Await physical therapy evaluation. //Hypertension Patient was started on Cardizem today. We will continue the current medication regimen and adjust her medications if needed. =04/14. Systolic blood pressure acceptable. Continue to monitor. //Diabetes mellitus type 2 Continue insulin sliding scale. Her diabetes medication regimen will be adjusted as needed. //Sleep apnea. Noncompliant with CPAP. Patient interested in treating sleep apnea. Will refer to pulmonology as outpatient. No pharmacotherapy for DVT prophylaxis as the patient underwent cardiac catheterization today. Discharge Planning: Discharge to rehab. (2) Type II diabetes mellitus Qualifiers: Diabetes mellitus manager long term care insulin use: without fdc use Diabetes mellitus complication status: with unspecified complications Qualified Code(s) : E11.8 - Type 2 diabetes mellitus with unspecified complications
--- NOTE | 2018-04-16 11:11 | P.DS ---
Date of admission: 04/11/18 16:23 Primary care physician: UNKNOWN Brief History from admission: This patient is a 72-year-old female with a diagnosis of diabetes mellitus type 2, hypertension, chronic pain, and asthma. The patient presented to our emergency department with intermittent nonexertional chest pain. The chest pain has been ongoing since Monday night. He says initially she noticed it while sleeping which awakened her at night. The pain has been ongoing most on the left side of her chest. She describes the pain as sharp in nature. She follows up with Dr. Baca. She recently was seen by Dr. Baca for palpitations. Patient states she had a cardiac catheterization which was done possibly 10 years ago and was normal. Due to her symptoms she came into our facility today for evaluation and care. A Lexiscan was done today which was abnormal. I was called to admit the patient and she will undergo a cardiac catheterization tomorrow. Past medical history diabetes mellitus type 2, hypertension, chronic pain, asthma, gastroesophageal reflux disease, rheumatoid arthritis, Family history noncontributory for cardiac disease. Social history patient was never a smoker however did have secondhand smoke exposure, no history of alcohol use DS: Diagnosis - Discharge Diagnosis (1) Generalized weakness Status: Acute (2) Type II diabetes mellitus Status: Chronic (3) Paroxysmal atrial fibrillation Status: Acute DS: Medications - Discharge Medications Prescriptions: amiodarone 200 mg PO DAILY 30 Days #30 tab apixaban [Eliquis] 5 mg PO BID 30 Days #60 tab aspirin 81 mg PO DAILY 30 Days #7.5 tab carvedilol [Coreg] 3.125 mg PO BID 30 Days #60 tab diltiazem HCl 240 mg PO DAILY 30 Days #30 cap hydrocodone-acetaminophen 1 tab PO Q6H PRN #12 tab PRN Reason: Pain DS: Summary Hospital Course: Patient underwent cardiac catheterization which showed only mild disease. However, after cardiac catheterization patient went into atrial fibrillation with RVR, resistant to Cardizem. Patient was started on amiodarone with resumption of normal sinus rhythm. Patient was also started on Eliquis by cardiology. Patient need to follow with primary care and cardiology as outpatient. For problem-based summary for most recent progress note, please see below. This patient is a 72-year-old female with a diagnosis of diabetes mellitus type 2, hypertension, chronic pain, and asthma. The patient presented to our emergency department with intermittent nonexertional chest pain. The chest pain has been ongoing since Monday night. //Chest pain concern for acute coronary syndrome //Atrial fibrillation with rapid ventricular rate The patient underwent cardiac catheterization today which showed mild disease. Recommendations were to continue medical management. After the procedure the patient went into atrial fibrillation with rapid ventricular rate she was started on p.o. Cardizem however her heart rate continued to be in the 150s and she was then given amiodarone push and then started on an amiodarone drip. Cardiology is following the patient. The patient has now converted to normal sinus rhythm and her heart rate is in the 80s. I will continue to follow-up with cardiology for the recommendations. During this episode the patient remained asymptomatic. Cardiac enzymes and troponins from admission day were negative. =04/15 We will switch to by mouth amiodarone. Continue diltiazem. Could be that Afrin is exacerbating A. fib. Will add Flonase. = 04/16. Some slight irritation from Flonase. Will switch to Nasacort at discharge. //Generalized weakness //Right shoulder pain = We will obtain right shoulder x-ray 04/16Await physical therapy evaluation. //Hypertension Patient was started on Cardizem today. We will continue the current medication regimen and adjust her medications if needed. =04/14. Systolic blood pressure acceptable. Continue to monitor. //Diabetes mellitus type 2 Continue insulin sliding scale. Her diabetes medication regimen will be adjusted as needed. //Sleep apnea. Noncompliant with CPAP. Patient interested in treating sleep apnea. Will refer to pulmonology as outpatient. No pharmacotherapy for DVT prophylaxis as the patient underwent cardiac catheterization today. Discharge Planning: Discharge to rehab. - Time Spent with Patient Total time spent providing and/or coordinating discharge services: Greater than 30 minutes - Quality: VTE Deep Vein Thrombosis/Pulmonary Embolism Present on Admission: No Exam Vital signs: Vital Signs 04/15/18 12:00 04/15/18 13:00 04/15/18 14:00 Temperature Pulse Rate 83 76 80 Respiratory Rate Blood Pressure Pulse Oximetry 04/15/18 14:49 04/15/18 14:51 04/15/18 15:00 Temperature 98.5 F Pulse Rate 76 74 Respiratory Rate 20 20 Blood Pressure 153/75 H Pulse Oximetry 95 04/15/18 16:00 04/15/18 16:36 04/15/18 17:00 Temperature Pulse Rate 77 71 76 Respiratory Rate 16 Blood Pressure Pulse Oximetry 04/15/18 18:00 04/15/18 19:01 04/15/18 19:40 Temperature Pulse Rate 80 77 75 Respiratory Rate 16 Blood Pressure Pulse Oximetry 04/15/18 20:00 04/15/18 20:05 04/15/18 21:01 Temperature 98.2 F Pulse Rate 77 76 81 Respiratory Rate 16 Blood Pressure 142/83 H Pulse Oximetry 94 L 04/15/18 21:18 04/15/18 22:00 04/15/18 23:03 Temperature Pulse Rate 78 70 Respiratory Rate 9 L Blood Pressure Pulse Oximetry 04/16/18 00:02 04/16/18 00:24 04/16/18 01:07 Temperature 98.2 F Pulse Rate 73 84 84 Respiratory Rate 18 Blood Pressure 136/69 Pulse Oximetry 96 04/16/18 02:01 04/16/18 03:04 04/16/18 03:57 Temperature 98.3 F Pulse Rate 70 68 80 Respiratory Rate 16 Blood Pressure 126/73 Pulse Oximetry 95 04/16/18 04:12 04/16/18 05:01 04/16/18 06:18 Temperature Pulse Rate 68 63 71 Respiratory Rate Blood Pressure Pulse Oximetry 04/16/18 07:30 04/16/18 07:56 04/16/18 08:45 Temperature 98.6 F Pulse Rate 78 86 Respiratory Rate 16 18 Blood Pressure 145/63 H Pulse Oximetry 96 04/16/18 10:16 Temperature Pulse Rate 81 Respiratory Rate 16 Blood Pressure Pulse Oximetry Intake & Output 04/15/18 04/16/18 04/16/18 18:59 06:59 18:59 Intake Total 1200 / 1200 240 / 240 Output Total 1900 / 1900 1700 / 1700 Balance -700 / -700 -1460 / -1460 Weight 116.6 kg Intake: Oral 1200 / 1200 240 / 240 Output: Urine 1900 / 1900 1700 / 1700 Other: Date of Last Bowel Movement 04/14/18 04/14/18 Results Procedures completed during hospitalization: cardiac catheterization Labs on day of discharge: Labs from last 24 hours 10/22/18 10/22/18 10/21/18 08:04 06:07 21:08 Sodium 136 Potassium 4.0 Chloride 102 Carbon Dioxide 26.8 Anion Gap 7 BUN 12 Creatinine 0.69 Estimated GFR 84 L POC Glucose 182 H 169 H Random Glucose 153 H Calcium 10.0 Phosphorus 2.9 Magnesium 2.1 Albumin 3.0 L 04/15/18 04/15/18 16:46 11:31 Sodium Potassium Chloride Carbon Dioxide Anion Gap BUN Creatinine Estimated GFR POC Glucose 169 H 189 H Random Glucose Calcium Phosphorus Magnesium Albumin - Impressions ITS Impressions Chest X-Ray 04/11/18 13:56 CONCLUSION: No acute disease Chest CTA 04/11/18 13:57 CONCLUSION: 1. No evidence for pulmonary embolism. Myocardial Perfusion Scan Nuc Med 04/12/18 00:00 CONCLUSION: 1. Focal reversible defect in the mid anteroseptal wall suggestive of focal stress-induced ischemia. 2. Intact wall motion with EF of 70%. Shoulder X-Ray 04/14/18 00:00 CONCLUSION: 1. Significant deformity of the right humeral head likely related to old trauma and resultant significant arthritis. 2. No acute fracture is noted. 3. Degenerative changes are also noted involving the right acromioclavicular joint. Discharge Plan - Discharge Disposition Patient Disposition: 03 Discharge to SNF - Discharge Condition Condition: Stable - Discharge Order Discharge Orders: Discharge Order (Routine); Ordered 04/16/18 Ordered By: Luca Ruano Cardiology Clear for Discharge (Routine); Ordered 04/14/18 Ordered By: Sal Gama - Discharge Details Anticipated Discharge Date: 04/16/18 - Physicians Team Primary Care Provider: UNKNOWN, Attending Provider: Luca Ruano Other Providers: [employer] ; Sal Gama MD ; [facility],[place]
[2018-04-17] MEDS: Aspirin 325 MG Tablet PO SCH (09:34)
[2018-04-17] MEDS: Insulin NovoLOG Aspart Correctional Sugar Inj SQ SCH ×2 (09:34→11:57)
[2018-04-17] MEDS: dilTIAZem CD 240 MG Capsule PO SCH (09:34)
[2018-04-17] MEDS: Gabapentin 300 MG Capsule PO SCH ×2 (09:34→12:01)
[2018-04-17 10:34] VITALS: TEMP 98.5; O2SAT 97
[2018-04-17 12:39] VITALS: BP 160/88
[2018-04-17 15:07] VITALS: RESP 18
[2018-04-17 15:32] VITALS: PULSE 89
== END 2018-04-17 15:25 ==
LOC: NEDA 13:39 → NEPE 13:39 → NEPFCDU 17:17 → HCIS 04-13 08:09 → HCPC 04-13 14:50 → HCIS 04-14 00:38
PROVIDERS: ADMIT Internal Medicine; ATTEND Internal Medicine